=== PATIENT | female | born 1960 | race Caucasian/White ===

== ENCOUNTER 2017-06-10 17:34 | Inpatient (IN) | payer MEDICARE, OTHER ==
--- NOTE | 2017-06-10 17:54 | ED Physician Chart ---
ED Chief Complaint/HPI - Patient Information Date Seen:: 06/10/17 Time Seen:: 17:40 Chief Complaint:: Abdominal Pain History of Present Illness:: onset x 3 days of intermittent, diffuse, crampy abdominal pain, N/V/D; pt denies trauma, H/As, S/T, neck pain, C/P, SOB, A/C, fever, chills, or urinary s/ s Allergies:: Allergies Allergy/AdvReac Type Severity Reaction Status Date / Time prednisone AdvReac Verified 06/10/17 17:44 Historian:: Patient, EMS Review:: Nurse's Note Reviewed, Old Chart Reviewed, EMS run form Reviewed ED Review of Systems - Review of Systems General/Constitutional: No fever, No chills, No weight loss, No weakness, No diaphoresis, No edema, No loss of appetite Skin: No skin lesions, No rash, No bruising Head: No headache, No light-headedness Eyes: No loss of vision, No pain, No diplopia ENT: No earache, No nasal drainage, No sore throat, No tinnitus Neck: No neck pain, No swelling, No thyromegaly, No stiffness, No mass noted Cardio Vascular: No chest pain, No palpitations, No PND, No orthopnea, No edema Pulmonary: No SOB, No cough, No sputum, No wheezing GI: Nausea, Vomiting, Diarrhea, Pain, No melena, No hematochezia, No constipation, No hematemesis G/U: No dysuria, No frequency, No hematuria, No nacturia Hair Dryer: No vaginal discharge, No abnormal vaginal bleed, No contraction Musculoskeletal: No bone or joint pain, No back pain, No muscle pain Endocrine: No polyuria, No polydipsia Psychiatric: No prior psych history, No depression, No anxiety, No suicidal ideation, No homicidal ideation, No auditory hallucination, No visual hallucination Hematopoietic: No bruising, No lymphadenopathy Allergic/Immuno: No urticaria, No angioedema Neurological: No syncope, Focal symptoms, Weakness, Paresthesia, No headache, No seizure, No dizziness, No confusion, No vertigo ED Past Medical History - Past Medical History Obtainable: Yes Past Medical History: HTN, DM, CAD, CVA/TIA (Paraplegia; Anemia; MRSA), Dyslipidemia, PUD/GERD, ESRD, Other (Anemia; MRSA) Family History: Diabetes Melitus, HTN Social History: Non Smoker, No Alcohol, No Drug Use, Single, Care Facility Surgical History: None Psychiatricy History: None Medication: Reviewed Family Medical History - Family Member Mother Hx Family Cancer: No Hx Family Hypertension: No Hx Family Stroke: No Hx Family Diabetes: No Hx Family Dementia: No Hx Family HIV: No Hx Family COPD: No Hx Family Hepatitis: No Hx Family Psychiatric Problems: No ED Physical Exam - Physical Examination General/Constitutional: Awake, Well-developed, well-nourished, Alert, No distress, GCS 15, Non-toxic appearing, Ambulatory Head: Atraumatic Eyes: Lids, conjuctiva normal, PERRL, EOMI Skin: Nl inspection, No rash, No skin lesions, No ecchymosis, Well hydrated, No lymphadenopathy ENMT: External ears, nose nl, TM canals nl, Nasal exam nl, Lips, teeth, gums nl , Oropharynx nl, Tonsils nl Neck: Nontender, Full ROM w/o pain, No JVD, No nuchal rigidity, No bruit, No mass, No stridor Respiratory: Nl effort/Exclusion, Clear to Auscultation, No Wheeze/Rhonchi/Rales Cardio Vascular: RRR, No murmur, gallop, rubs, NL S1 S2, Carotid/Femoral/Distal pulses equal bilaterally GI: No tenderness/rebounding/guarding, No organomegaly, No hernia, Normal BS's, Nondistended, No mass/bruits, No McBurney tenderness : No CVA tenderness Extremities: No tenderness or effusion, Full ROM, normal strength in all extremities, No edema, Normal digits & nails Neuro/Psych: Alert/oriented, DTR's symmetric, Normal sensory exam, Normal motor strength, Judgement/insight normal, Mood normal, Normal gait Other Neuro/Psych comments:: + Paraplegia Misc: Normal back, No paraspinal tenderness ED Labs/Radiology/EKG Results - Lab Results Comments:: Na+: 130; U/A: + Pyuria - Radiology Results Comments:: NAD - EKG Interpretations EKG Time:: 18:30 Rate & Rhythm: 84; NSR Comments:: non-specific st-t changes ED Septic Shock - . Is Septic Shock (SBP<90, OR Lactate>4 mmol\L) present?: No ED Reassessment (Disposition) - Reassessment Reassessment Condition:: Improved - Diagnosis Diagnosis:: Hyponatremia; UTI; Anemia; Abdominal Pain; Intractable Pain - Aftercare/Follow up Instructions Aftercare/Follow-Up Instructions:: Counseled pt regarding lab results/diagnosis & need follow up, Counseled pt & family regarding lab results/diagnosis & need follow up - Patient Disposition Discharge/Transfer:: Acute Care w/in this hosp Accepting Physician:: Dr. Fernandez Time Called:: 1949 Time Responded:: 19:50 Admitted to:: Med/Surg Spoke to:: Dr. Fernandez Admitting Medical Physician:: Dr. Fernandez Condition at Disposition:: Stable, Improved
[2017-06-10] MEDS ORDERED: Sodium Chloride 0.9% 1,000 ML IV ONE (17:57)
[2017-06-10 18:42] LABS: % BASOPHILS 0.1 % (0.0-2.0); % EOSINOPHILS 0.9 % (0.0-5.0); % LYMPHOCYTES 27.8 % (20.0-50.0); % MONOCYTES 9.2 % (2.0-10.0); EOSINOPHILE ABSOLUTE 0.1 Th/cmm (0.1-0.4); HEMATOCRIT 31.8 % (41.0-60); HEMOGLOBIN 10.4 gm/dL (12-16); LYMPHOCYTE ABSOLUTE 2.4 Th/cmm (1.5-3.0); MEAN CELL VOLUME 70.6 fl (81-100); MEAN CORPUSCULAR HEMOGLOBIN 23.1 pg (27.0-31.0); MEAN CORPUSCULAR HGB CONC 32.7 pg (28.0-36.0); MEAN PLATELET VOLUME 7.5 fl; MONOCYTE ABSOLUTE 0.8 Th/cmm (0.3-1.0); NEUTROPHILE ABSOLUTE 5.3 Th/cmm (1.8-8.0); RED CELL DISTRIBUTION WIDTH 15.4 % (11.5-20.0); WHITE BLOOD COUNT 8.6 Th/cmm (4.8-10.8)
[2017-06-10] MEDS ORDERED: Tuberculin 5 TU/0.1 mL UD ID ONE (19:01)
[2017-06-10 19:33] LABS: PLATELET COUNT 384 Th/cmm (150-400)
[2017-06-10 19:33] LABS: INR 0.96 (0.5-1.4)
[2017-06-10 19:36] LABS: ALB/GLOB RATIO 0.7 (1.0-1.8); ALBUMIN 2.6 gm/dL (3.7-5.3); ALKALINE PHOSPHATASE 105 U/L (34-104); AMYLASE SERUM 21 U/L (29-103); ANION GAP 10.3 (7.0-16.0); BILIRUBIN,TOTAL 0.3 mg/dL (0.3-1.0); BUN - UREA NITROGEN 10 mg/dL (7-25); CALCIUM SERUM 8.3 mg/dL (8.6-10.3); CARBON DIOXIDE 22.6 mEq/L (21.0-31.0); CHLORIDE 101 mEq/L (98-107); CHOLESTEROL 97 mg/dL (<200); CREATININE - SERUM 0.5 mg/dL (0.6-1.2); CREATININE KINASE 108 U/L (30-223); GFR AFRICAN-AMERICAN > 60.0 ml/min (>90); GFR NON AFRICAN-AMERICAN > 60.0 ml/min; GLUCOSE 230 mg/dL (70-105); HDL -HIGH DENSITY LIPOPROTEIN 18 mg/dL (23-92); LIPASE 24 U/L (11-82); POTASSIUM SERUM 3.9 mEq/L (3.5-5.1); SGOT 12 U/L (13-39); SGPT/ALT 12 U/L (7-52); SODIUM SERUM 130 mEq/L (136-145); TOTAL PROTEIN,SERUM 6.5 gm/dL (6.0-8.3); TRIGLYCERIDES 165 mg/dL (<150)
[2017-06-10 19:40] LABS: URINE MICROSCOPIC INDICATED? YES; URINE SOURCE CLEAN C
[2017-06-10 19:44] LABS: URINE BILIRUBIN NEGATIVE (NEGATIVE); URINE BLOOD SMALL (NEGATIVE); URINE GLUCOSE (UA) NEGATIVE (NEGATIVE); URINE KETONE NEGATIVE (NEGATIVE); URINE LEUKOCYTE ESTERASE MODERATE (NEGATIVE); URINE NITRATE NEGATIVE (NEGATIVE); URINE PH 7.5 (4.6 - 8.0); URINE PROTEIN 30 mg/dL (NEGATIVE)
[2017-06-10 19:45] LABS: URINE COLOR YELLOW
[2017-06-10 19:46] LABS: URINE CLARITY HAZY (CLEAR)
[2017-06-10 19:50] LABS: URINE BACTERIA 2+ /hpf (NONE SEEN); URINE EPITHELIAL CELLS FEW /lpf (FEW)
[2017-06-10] MEDS ORDERED: Morphine Sulfate 2 mg/mL 1mL Syr IV STA (20:09)
[2017-06-10] MEDS ORDERED: Morphine Sulfate 2 mg/mL 1mL Syr ONE (20:35)
[2017-06-10] MEDS ORDERED: cefTRIAXone 1 GM in Sodium Chloride 0.9% 50 ML IV ONE (21:04)
[2017-06-10] MEDS ORDERED: IOHEXOL 300mgI/mL 100 ML VIAL ONE (21:22)
[2017-06-10] MEDS ORDERED: FENTANYL 100 MCG TD SCH (22:30)
[2017-06-10] MEDS ORDERED: Albuterol Nebulizer 2.5mg/3mL HHN PRN (22:32)
[2017-06-10] MEDS ORDERED: Maalox 30 mL Cup PO PRN (22:32)
[2017-06-10] MEDS ORDERED: Ipratropium Neb 0.5 mg/2.5 mL UD IH PRN (22:32)
[2017-06-10] MEDS ORDERED: Sodium Chloride 0.9% 1,000 ML IV SCH (22:45)
[2017-06-10] MEDS ORDERED: Sodium Chloride 0.45% 1,000 ML IV SCH (22:45)
[2017-06-10 22:51] LABS: A1C % 6.5 % (4.0-6.0)
[2017-06-10] MEDS ORDERED: GLUCAGON HCl 1 MG KIT IM PRN (23:00)
[2017-06-11] MEDS: Morphine Sulfate 2 mg/mL 1mL Syr IVP PRN (00:59)
[2017-06-11] MEDS: metroNIDAZOLE 500mg/NS 100mL 500 MG/100 ML BAG IV SCH ×4 (01:01→21:30)
[2017-06-11] MEDS: Levofloxacin 500mg/100mL 500 MG/100 ML BAG IV SCH (02:46)
[2017-06-11] MEDS: INSULIN ASPART, RECOMBINANT 100 UNITS/ML SUBQ SCH ×4 (06:47→21:30)
--- NOTE | 2017-06-11 07:55 | Diagnostic Imaging Report ---
CT scan abdomen and pelvis with intravenous contrast HISTORY: Pain Total DLP equals 314 CTDI equals 6.9 Axial sections were obtained from the xiphoid process down to the pubic symphysis following administration of intravenous contrast. The liver and spleen appear enlarged. No focal lesions. No focal parenchymal abnormality seen within the pancreas. However, there is a prominent common bile duct and pancreatic duct. Findings of questionable significance that should be correlated clinically and with the patient's surgical history. The gallbladder is not seen. Again, the finding should be correlated with the surgical history. No focal renal lesions. No hydronephrosis. The exam of the pelvis demonstrates preservation of normal fat planes. No abnormal soft tissue masses or abnormal fluid collections. A Dunn catheter is seen within the contracted urinary bladder. IMPRESSION: 1. Hepatosplenomegaly 2. Prominent common bile duct and pancreatic duct. The gallbladder is not seen. Findings may be associated with surgical sequelae. Clinical correlation and correlation with the surgical history is needed.
--- NOTE | 2017-06-11 08:02 | Diagnostic Imaging Report ---
CHEST X-RAY: AP view INDICATION: pain COMPARISON: None FINDINGS: Mild chronic lung changes are noted. There is no focal consolidation or pleural effusions The heart is normal in size. The osseous structures demonstrate no acute abnormalities. IMPRESSION: No focal airspace consolidation identified.
[2017-06-11] MEDS: Multivitamin w/ Minerals Tab PO SCH (08:17)
[2017-06-11] MEDS: Pantoprazole 40 mg EC Tab PO SCH ×2 (08:18→20:07)
[2017-06-11] MEDS: Enoxaparin 40 mg/0.4 mL 0.4mL Syr SUBQ SCH (08:18)
[2017-06-11] MEDS ORDERED: fentaNYL 50 mcg/hr Tdm Patch TD SCH (10:00)
[2017-06-11] MEDS ORDERED: Probiotic Screen MC PRN (12:00)
[2017-06-11] MEDS: Insulin Detemir 100 units/mL 10mL Vial SUBQ SCH (12:15)
--- NOTE | 2017-06-11 13:12 | Internal Medicine Prog Note ---
Internal Medicine Subjective - Subjective Service Date: 06/11/17 ([facility] [id number]) Internal Medicine Objective - Results Result Diagrams: 06/10/17 18:30 06/10/17 19:05 Recent Labs: Laboratory Last Values WBC 8.6 Th/cmm (4.8-10.8) 06/10/17 18:30 RBC 4.50 Mil/cmm (3.80-5.10) 06/10/17 18:30 Hgb 10.4 gm/dL (12-16) L 06/10/17 18:30 Hct 31.8 % (41.0-60) L 06/10/17 18:30 MCV 70.6 fl (81-100) L 06/10/17 18: MCH 23.1 pg (27.0-31.0) L 06/10/17 18: MCHC Differential 32.7 pg (28.0-36.0) 06/10/17 18: RDW 15.4 % (11.5-20.0) 06/10/17 18: Plt Count 384 Th/cmm (150-400) 06/10/17 18:30 MPV 7.5 fl 06/10/17 18:30 Neutrophils % 62.0 % (40.0-80.0) 06/10/17 18: Lymphocytes % 27.8 % (20.0-50.0) 06/10/17 18:30 Monocytes % 9.2 % (2.0-10.0) 06/10/17 18: Eosinophils % 0.9 % (0.0-5.0) 06/10/17 18: Basophils % 0.1 % (0.0-2.0) 06/10/17 18:30 PT 10.0 SECONDS (9.5-11.5) 06/10/17 19:05 INR 0.96 (0.5-1.4) 06/10/17 19:05 Sodium 130 mEq/L (136-145) L 06/10/17 19:05 Potassium 3.9 mEq/L (3.5-5.1) 06/10/17 19:05 Chloride 101 mEq/L (98-107) 06/10/17 19:05 Carbon Dioxide 22.6 mEq/L (21.0-31.0) 06/10/17 19:05 Anion Gap 10.3 (7.0-16.0) 06/10/17 19:05 BUN 10 mg/dL (7-25) 06/10/17 19:05 Creatinine 0.5 mg/dL (0.6-1.2) L 06/10/17 19:05 Est GFR ( Amer) > 60.0 ml/min (>90) 06/10/17 19:05 Est GFR (Non-Af Amer) > 60.0 ml/min 06/10/17 19:05 BUN/Creatinine Ratio 20.0 06/10/17 19:05 Glucose 230 mg/dL (70-105) H 06/10/17 19:05 POC Glucose 265 MG/DL (70 - 105) H 06/11/17 11:53 Hemoglobin A1c % 6.5 % (4.0-6.0) H 06/10/17 19:05 Calcium 8.3 mg/dL (8.6-10.3) L 06/10/17 19:05 Total Bilirubin 0.3 mg/dL (0.3-1.0) 06/10/17 19:05 AST 12 U/L (13-39) L 06/10/17 19:05 ALT 12 U/L (7-52) 06/10/17 19:05 Alkaline Phosphatase 105 U/L (34-104) H 06/10/17 19:05 Creatine Kinase 108 U/L (30-223) 06/10/17 19:05 Troponin I 0.01 ng/mL (0.01-0.05) 06/10/17 19:05 B-Natriuretic Peptide 47.9 pg/mL (5.0-100.0) 06/10/17 19:05 Total Protein 6.5 gm/dL (6.0-8.3) 06/10/17 19:05 Albumin 2.6 gm/dL (3.7-5.3) L 06/10/17 19:05 Globulin 3.9 gm/dL 06/10/17 19:05 Albumin/Globulin Ratio 0.7 (1.0-1.8) L 06/10/17 19:05 Triglycerides 165 mg/dL (<150) H 06/10/17 19:05 Cholesterol 97 mg/dL (<200) 06/10/17 19:05 LDL Cholesterol Direct 61 mg/dL (75-193) L 06/10/17 19:05 HDL Cholesterol 18 mg/dL (23-92) L 06/10/17 19:05 Amylase 21 U/L (29-103) L 06/10/17 19:05 Lipase 24 U/L (11-82) 06/10/17 19:05 Serum , Qual NEGATIVE (NEGATIVE) 06/10/17 19:05 Urine Source CLEAN C 06/10/17 17:58 Urine Color YELLOW 06/10/17 17:58 Urine Clarity HAZY (CLEAR) 06/10/17 17:58 Urine pH 7.5 (4.6 - 8.0) 06/10/17 17:58 Ur Specific [place] 1.015 (1.005-1.030) 06/10/17 17:58 Urine Protein 30 mg/dL (NEGATIVE) H 06/10/17 17:58 Urine Glucose (UA) NEGATIVE mg/dL (NEGATIVE) 06/10/17 17:58 Urine Ketones NEGATIVE mg/dL (NEGATIVE) 06/10/17 17:58 Urine Blood SMALL (NEGATIVE) H 06/10/17 17:58 Urine Nitrate NEGATIVE (NEGATIVE) 06/10/17 17:58 Urine Bilirubin NEGATIVE (NEGATIVE) 06/10/17 17:58 Urine Urobilinogen 1.0 E.U./dL (0.2 - 1.0) 06/10/17 17:58 Ur Leukocyte Esterase MODERATE (NEGATIVE) H 06/10/17 17:58 Urine RBC 5-10 /hpf (0-5) H 06/10/17 17:58 Urine WBC 10-25 /hpf (0-5) H 06/10/17 17:58 Ur Epithelial Cells FEW /lpf (FEW) 06/10/17 17:58 Urine Bacteria 2+ /hpf (NONE SEEN) H 06/10/17 17:58 Urine Test NEGATIVE 06/10/17 17:58 - Physical Exam Vitals and I&O: Vital Signs Temp 98.7 F 06/11/17 04:00 Pulse 78 06/11/17 08:52 Resp 18 06/11/17 08:52 BP 88/53 06/11/17 04:00 Pulse Ox 98 06/11/17 08:52 Intake & Output 06/10/17 06/11/17 06/11/17 18:59 06:59 18:59 Weight (lbs) 133 lb Active Medications: Current Medications Acetaminophen (Tylenol) 650 mg PO Q4HR PRN PRN Reason: Pain (Mild) Stop: 08/09/17 22:29 Acetaminophen (Tylenol) 650 mg PO Q4H PRN PRN Reason: Fever above 101 Stop: 08/09/17 22:31 Al Hydrox/Mg Hydrox/Simethicone (Maalox) 30 ml PO Q6H PRN PRN Reason: Dyspepsia Stop: 08/09/17 22:31 Albuterol Sulfate (Albuterol 2.5mg/3ml Neb Ud) 2.5 mg HHN Q2HRT PRN PRN Reason: Shortness of Breath or Wheeze Stop: 08/09/17 22:31 Baclofen (Lioresal) 10 mg PO QID [facility] Stop: 08/10/17 08:59 Last Admin: 06/11/17 08:17 Dose: 10 mg Duloxetine HCl (Cymbalta) 30 mg PO DAILY [facility] PRN Reason: Protocol Stop: 08/11/17 08:59 Enoxaparin Sodium (Lovenox) 40 mg SUBQ DAILY [facility] Stop: 08/10/17 08:59 Last Admin: 06/11/17 08:18 Dose: 40 mg Glucagon (Glucagen) 1 mg IM DAILY PRN PRN Reason: Anaphylaxis Stop: 08/09/17 22:59 Hydromorphone HCl (Dilaudid) 2 mg PO QID PRN PRN Reason: Pain (Moderate) Stop: 08/10/17 13:10 Levofloxacin (Levaquin Pb) 500 mg in 100 mls @ 100 mls/hr IV Q24HR [facility] Stop: 08/10/17 00:00 Last Admin: 06/11/17 02:46 Dose: 100 mls/hr Metronidazole (Flagyl) 500 mg in 100 mls @ 100 mls/hr IV Q8HR [facility] Stop: 08/09/17 22:59 Last Admin: 06/11/17 05:29 Dose: Not Given Sodium Chloride (Nacl 0.9%) 1,000 mls @ 80 mls/hr IV .[id number] [facility] Stop: 08/09/17 22:44 Insulin Aspart (Novolog) 0 units SUBQ ACHS [facility] PRN Reason: Protocol Stop: 08/10/17 07:29 Last Admin: 06/11/17 12:30 Dose: Not Given Insulin Detemir (Levemir Insulin) 34 units SUBQ HS [facility] PRN Reason: Protocol Stop: 08/10/17 20:59 Insulin Detemir (Levemir Insulin) 30 units SUBQ QAM [facility] PRN Reason: Protocol Stop: 08/10/17 08:59 Last Admin: 06/11/17 12:15 Dose: 30 units Ipratropium Dewitt (Atrovent Neb 0.5mg/2.5ml) 0.5 mg IH Q2HRT PRN PRN Reason: Shortness of Breath or Wheeze Stop: 08/09/17 22:31 Lactobacillus Rhamnosus (Culturelle 15b) 1 each PO DAILY [facility] Stop: 08/11/17 08:59 Miscellaneous (Probiotic Screen) 1 ea [facility] PRN PRN PRN Reason: PROTOCOL Stop: 08/10/17 11:59 Morphine Sulfate (Morphine) 2 mg IVP Q4H PRN PRN Reason: Severe Pain Stop: 08/09/17 22:34 Last Admin: 06/11/17 00:59 Dose: 2 mg Ondansetron HCl (Zofran) 4 mg IV Q8H PRN PRN Reason: Nausea / Vomiting Stop: 08/09/17 22:31 Pantoprazole Sodium (Protonix) 40 mg PO BID [facility] Stop: 08/10/17 08:59 Last Admin: 06/11/17 08:18 Dose: 40 mg Pregabalin (Lyrica) 50 mg PO TID [facility] Stop: 08/10/17 08:59 Last Admin: 06/11/17 08:17 Dose: 50 mg Quetiapine Fumarate (Seroquel) 12.5 mg PO HS [facility] PRN Reason: Protocol Stop: 08/10/17 20:59 Senna (Senna) 8.6 mg PO DAILY [facility] Stop: 08/10/17 08:59 Last Admin: 06/11/17 08:18 Dose: 8.6 mg Zolpidem Tartrate (Ambien) 10 mg PO HS PRN PRN Reason: Insomnia Stop: 08/09/17 22:50
--- NOTE | 2017-06-11 17:10 | History & Physical ---
ADMIT DATE: 06/11/2017 CHIEF COMPLAINT: Abdominal pain. HISTORY OF PRESENT ILLNESS: This is a 57-year-old female who is a custodial resident who is brought here to [facility] due to a 5-day history of abdominal pain. The patient states that the last time she had a BM was 4 days ago. She describes the pain as more crampy like intermittent sharp pains. Denies any nausea or vomiting. For further management, the patient is now admitted. PAST MEDICAL HISTORY: Hypertension, diabetes, CAD, CVA, paraplegia, anemia, MRSA, dyslipidemia, PD, GERD, ESRD and anemia. FAMILY HISTORY: Noncontributory. SOCIAL HISTORY: The patient is a custodial resident, requiring 24-hour nursing care. MEDICATIONS: Please see medication reconciliation. REVIEW OF SYSTEMS: GENERAL: Denies any fevers and chills. CARDIOVASCULAR: Denies chest pain. RESPIRATORY: Denies shortness of breath. GASTROINTESTINAL: Denies nausea, vomiting, but complains of abdominal pain and constipation. All other systems are reviewed and are negative. PHYSICAL EXAMINATION: GENERAL: The patient is well-developed, well-nourished, in no acute distress. VITAL SIGNS: Temperature 98.7, heart 78, blood pressure of 97/61 and O2 100%. HEENT: Head; normocephalic and atraumatic. NECK: Supple. No mass. LUNGS: Clear bilaterally. HEART: Regular rate and rhythm. ABDOMEN: Mildly distended. LABORATORY DATA: WBC 8.6, H and H 10.4 and 31.8 and platelets of 384. Sodium 130, potassium 3.9, chloride of 101, BUN 10, creatinine 0.5, hemoglobin A1c 6.5, AST 12 and ALT 12. Troponin of 0.01. Amylase 21 and lipase is 24. DIAGNOSTIC DATA: The patient had a CT of the abdomen and pelvis done and the impression is hepatosplenomegaly, prominent common bile duct and pancreatic duct. The gallbladder is not seen. Findings will be associated with surgical sequelae. The patient also had a chest x-ray done and the impression is no focal airspace consolidation identified. ASSESSMENT: 1. Abdominal pain. 2. Acute urinary tract infection. 3. Hyponatremia. 4. Constipation. PLAN: The patient to be admitted to the telemetry unit. We will keep the patient on IV antibiotics, Flagyl. We will give the patient some laxatives. Keep patient on full liquid diet. We will have GI on the case as well as Psychiatry and Wound Care. We will continue to follow this patient. JOB# [id number]
[2017-06-11] MEDS ORDERED: Insulin Detemir 100 units/mL 10mL Vial SUBQ SCH (21:00)
[2017-06-12] MEDS: Levofloxacin 500mg/100mL 500 MG/100 ML BAG IV SCH (01:55)
[2017-06-12] MEDS: metroNIDAZOLE 500mg/NS 100mL 500 MG/100 ML BAG IV SCH ×3 (06:38→21:39)
[2017-06-12 06:57] LABS: EOSINOPHILE ABSOLUTE 0.1 Th/cmm (0.1-0.4); HEMOGLOBIN 8.9 gm/dL (12-16); LYMPHOCYTE ABSOLUTE 2.5 Th/cmm (1.5-3.0); MEAN CELL VOLUME 70.1 fl (81-100); MEAN CORPUSCULAR HEMOGLOBIN 22.5 pg (27.0-31.0); MEAN PLATELET VOLUME 7.4 fl; NEUTROPHILE ABSOLUTE 2.2 Th/cmm (1.8-8.0); PLATELET COUNT 386 Th/cmm (150-400); RED BLOOD COUNT 3.95 Mil/cmm (3.80-5.10); RED CELL DISTRIBUTION WIDTH 15.2 % (11.5-20.0)
[2017-06-12 07:03] LABS: HEMATOCRIT 27.7 % (41.0-60); WHITE BLOOD COUNT 5.8 Th/cmm (4.8-10.8)
[2017-06-12 07:09] LABS: INR 1.05 (0.5-1.4); PROTHROMBIN TIME (TEST) 10.9 SECONDS (9.5-11.5)
[2017-06-12] MEDS: INSULIN ASPART, RECOMBINANT 100 UNITS/ML SUBQ SCH ×4 (07:10→21:30)
[2017-06-12 07:22] LABS: ALB/GLOB RATIO 0.7 (1.0-1.8); ALBUMIN 2.5 gm/dL (3.7-5.3); ALKALINE PHOSPHATASE 89 U/L (34-104); ANION GAP 8.9 (7.0-16.0); BILIRUBIN,TOTAL 0.3 mg/dL (0.3-1.0); BUN - UREA NITROGEN 5 mg/dL (7-25); CALCIUM SERUM 8.5 mg/dL (8.6-10.3); CARBON DIOXIDE 21.8 mEq/L (21.0-31.0); CHLORIDE 108 mEq/L (98-107); CREATININE - SERUM 0.7 mg/dL (0.6-1.2); GFR AFRICAN-AMERICAN > 60.0 ml/min (>90); GFR NON AFRICAN-AMERICAN > 60.0 ml/min; GLUCOSE 53 mg/dL (70-105); LIPASE 11 U/L (11-82); MAGNESIUM 2.1 mg/dL (1.9-2.7); POTASSIUM SERUM 3.7 mEq/L (3.5-5.1); SGOT 11 U/L (13-39); SGPT/ALT 9 U/L (7-52); SODIUM SERUM 135 mEq/L (136-145); TOTAL PROTEIN,SERUM 6.2 gm/dL (6.0-8.3)
[2017-06-12] MEDS: Enoxaparin 40 mg/0.4 mL 0.4mL Syr SUBQ SCH (10:12)
[2017-06-12] MEDS: Insulin Detemir 100 units/mL 10mL Vial SUBQ SCH ×2 (10:13→21:38)
[2017-06-12] MEDS: Multivitamin w/ Minerals Tab PO SCH (10:14)
[2017-06-12] MEDS: Pantoprazole 40 mg EC Tab PO SCH ×2 (10:14→17:19)
[2017-06-12] MEDS: Lactobacillus Rhamnosus GG 15 Billion CFU CAP.SPRINK PO SCH (10:14)
[2017-06-12] MEDS ORDERED: Propofol 10 mg/mL 20mL Vial **SURGERY USE ONLY IV ONE (11:01)
[2017-06-12] MEDS ORDERED: Magnesium Citrate 1.75 GM/300 mL Bottle PO ONE (11:30)
--- NOTE | 2017-06-12 12:54 | Consultation ---
DATE OF CONSULTATION: 06/11/2017 CHIEF COMPLAINT: "I am not doing well." HISTORY OF PRESENT ILLNESS: The patient is a 57-year-old female with a history of multiple medical problems, being sad and anxious, depressed, feeling easily overwhelmed. The patient has multiple medical issues, transferred from her [facility] facility for some changes in mental status exam. Now she is on medical floor. The patient does complain about pain issues. PAST PSYCHIATRIC HISTORY: Anxiety and depression, but no prior suicide attempts. PAST MEDICAL HISTORY: As per Dr. Fernandez. PSYCHOSOCIAL HISTORY: The patient resides in a nursing facility, requires complete care. MENTAL STATUS EXAMINATION: Speech fluent, not pressured, but slightly fast. Affect somewhat labile, depressed, anxious. The patient slightly guarded, possibly paranoid, but no delusional thought. She is oriented x 3. ASSESSMENT: Major depressive disorder, recurrent, possibly psychosis. PLAN: We will add Cymbalta 30 mg p.o. every day, small dose of Seroquel at nighttime. We will follow the patient closely in the hospital. Thank you for the consultation. JOB# [id number]
[2017-06-12 13:51] LABS: ABSOLUTE RETICULOCYTE 31.6 Th/cmm; RBC RETICULOCYTE COUNT 3.95 Mil/cmm; RETICULOCYTES % COUNTED 0.8 % (0.5-1.5)
[2017-06-12 13:52] LABS: CORRECTED RETICULOCYTE COUNT 0.5 % (0.5-1.5); HEMATOCRIT 27.7 % (33.0-45.0)
--- NOTE | 2017-06-12 14:45 | Internal Medicine Prog Note ---
Internal Medicine Subjective - Subjective Service Date: 06/12/17 Patient seen and examined:: with staff Patient is:: awake Per staff patient has:: tolerating meds Internal Medicine Objective - Results Result Diagrams: 06/12/17 06:10 06/12/17 06:10 Recent Labs: Laboratory Last Values WBC 5.8 Th/cmm (4.8-10.8) D 06/12/17 06:10 RBC 3.95 Mil/cmm (3.80-5.10) 06/12/17 06:10 Hgb 8.9 gm/dL (12-16) L 06/12/17 06:10 Hct 27.7 % (33.0-45.0) L 06/12/17 06:10 MCV 70.1 fl (81-100) L 06/12/17 06:10 MCH 22.5 pg (27.0-31.0) L 06/12/17 06:10 MCHC Differential 32.0 pg (28.0-36.0) 06/12/17 06:10 RDW 15.2 % (11.5-20.0) 06/12/17 06:10 Plt Count 386 Th/cmm (150-400) 06/12/17 06:10 MPV 7.4 fl 06/12/17 06:10 Neutrophils % 62.0 % (40.0-80.0) 06/10/17 18:30 Lymphocytes % 27.8 % (20.0-50.0) 06/10/17 18:30 Monocytes % 9.2 % (2.0-10.0) 06/10/17 18:30 Eosinophils % 0.9 % (0.0-5.0) 06/10/17 18:30 Basophils % 0.1 % (0.0-2.0) 06/10/17 18:30 Total Retics Counted 0.8 % (0.5-1.5) 06/12/17 06:10 Absolute Retic 31.6 Th/cmm 06/12/17 06:10 Corrected Retic Count 0.5 % (0.5-1.5) 06/12/17 06:10 PT 10.9 SECONDS (9.5-11.5) 06/12/17 06:10 INR 1.05 (0.5-1.4) 06/12/17 06:10 Sodium 135 mEq/L (136-145) L 06/12/17 06:10 Potassium 3.7 mEq/L (3.5-5.1) 06/12/17 06:10 Chloride 108 mEq/L (98-107) H 06/12/17 06:10 Carbon Dioxide 21.8 mEq/L (21.0-31.0) 06/12/17 06:10 Anion Gap 8.9 (7.0-16.0) 06/12/17 06:10 BUN 5 mg/dL (7-25) L 06/12/17 06:10 Creatinine 0.7 mg/dL (0.6-1.2) 06/12/17 06:10 Est GFR ( Amer) > 60.0 ml/min (>90) 06/12/17 06:10 Est GFR (Non-Af Amer) > 60.0 ml/min 06/12/17 06:10 BUN/Creatinine Ratio 7.1 06/12/17 06:10 Glucose 53 mg/dL (70-105) L 06/12/17 06:10 POC Glucose 198 MG/DL (70 - 105) H 06/12/17 11:52 Hemoglobin A1c % 6.5 % (4.0-6.0) H 06/10/17 19:05 Calcium 8.5 mg/dL (8.6-10.3) L 06/12/17 06:10 Magnesium 2.1 mg/dL (1.9-2.7) 06/12/17 06:10 Total Bilirubin 0.3 mg/dL (0.3-1.0) 06/12/17 06:10 AST 11 U/L (13-39) L 06/12/17 06:10 ALT 9 U/L (7-52) 06/12/17 06:10 Alkaline Phosphatase 89 U/L (34-104) 06/12/17 06:10 Creatine Kinase 108 U/L (30-223) 06/10/17 19:05 Troponin I 0.01 ng/mL (0.01-0.05) 06/10/17 19:05 B-Natriuretic Peptide 47.9 pg/mL (5.0-100.0) 06/10/17 19:05 Total Protein 6.2 gm/dL (6.0-8.3) 06/12/17 06:10 Albumin 2.5 gm/dL (3.7-5.3) L 06/12/17 06:10 Globulin 3.7 gm/dL 06/12/17 06:10 Albumin/Globulin Ratio 0.7 (1.0-1.8) L 06/12/17 06:10 Triglycerides 165 mg/dL (<150) H 06/10/17 19:05 Cholesterol 97 mg/dL (<200) 06/10/17 19:05 LDL Cholesterol Direct 61 mg/dL (75-193) L 06/10/17 19:05 HDL Cholesterol 18 mg/dL (23-92) L 06/10/17 19:05 Amylase 21 U/L (29-103) L 06/10/17 19:05 Lipase 11 U/L (11-82) 06/12/17 06:10 TSH 2.25 uIU/ml (0.34-5.60) 06/12/17 06:10 Serum , Qual NEGATIVE (NEGATIVE) 06/10/17 19:05 Urine Source CLEAN C 06/10/17 17:58 Urine Color YELLOW 06/10/17 17:58 Urine Clarity HAZY (CLEAR) 06/10/17 17:58 Urine pH 7.5 (4.6 - 8.0) 06/10/17 17:58 Ur Specific [place] 1.015 (1.005-1.030) 06/10/17 17:58 Urine Protein 30 mg/dL (NEGATIVE) H 06/10/17 17:58 Urine Glucose (UA) NEGATIVE mg/dL (NEGATIVE) 06/10/17 17:58 Urine Ketones NEGATIVE mg/dL (NEGATIVE) 06/10/17 17:58 Urine Blood SMALL (NEGATIVE) H 06/10/17 17:58 Urine Nitrate NEGATIVE (NEGATIVE) 06/10/17 17:58 Urine Bilirubin NEGATIVE (NEGATIVE) 06/10/17 17:58 Urine Urobilinogen 1.0 E.U./dL (0.2 - 1.0) 06/10/17 17:58 Ur Leukocyte Esterase MODERATE (NEGATIVE) H 06/10/17 17:58 Urine RBC 5-10 /hpf (0-5) H 06/10/17 17:58 Urine WBC 10-25 /hpf (0-5) H 06/10/17 17:58 Ur Epithelial Cells FEW /lpf (FEW) 06/10/17 17:58 Urine Bacteria 2+ /hpf (NONE SEEN) H 06/10/17 17:58 Urine Test NEGATIVE 06/10/17 17:58 - Physical Exam Vitals and I&O: Vital Signs Temp 98.5 F 06/12/17 12:00 Pulse 80 06/12/17 12:00 Resp 16 06/12/17 12:00 BP 101/51 06/12/17 12:00 Pulse Ox 98 06/12/17 12:00 Intake & Output 06/11/17 06/12/17 06/12/17 18:59 06:59 18:59 Intake Total 450 100 Output Total 1000 Balance -550 100 Weight (lbs) 133 lb 128 lb 1.6 oz Intake: Intake, IV Amount 200 100 Levofloxacin 500mg/100mL 100 500 mg In 100 ml @ 100 mls/hr IV Q24HR [facility] Rx#: [id number] metroNIDAZOLE 500mg/NS 100 100 100mL 500 mg In 100 ml @ 100 mls/hr IV Q8HR [facility] Rx #:[id number] Oral 250 Output: Urine 1000 Other: # Bowel Movements 0 Active Medications: Current Medications Acetaminophen (Tylenol) 650 mg PO Q4HR PRN PRN Reason: Pain (Mild) Stop: 08/09/17 22:29 Acetaminophen (Tylenol) 650 mg PO Q4H PRN PRN Reason: Fever above 101 Stop: 08/09/17 22:31 Al Hydrox/Mg Hydrox/Simethicone (Maalox) 30 ml PO Q6H PRN PRN Reason: Dyspepsia Stop: 08/09/17 22:31 Albuterol Sulfate (Albuterol 2.5mg/3ml Neb Ud) 2.5 mg HHN Q2HRT PRN PRN Reason: Shortness of Breath or Wheeze Stop: 08/09/17 22:31 Baclofen (Lioresal) 10 mg PO QID [facility] Stop: 08/10/17 08:59 Last Admin: 06/12/17 12:57 Dose: 10 mg Duloxetine HCl (Cymbalta) 30 mg PO DAILY [facility] PRN Reason: Protocol Stop: 08/11/17 08:59 Last Admin: 06/12/17 10:07 Dose: Not Given Enoxaparin Sodium (Lovenox) 30 mg SUBQ DAILY [facility] Stop: 08/10/17 08:59 Glucagon (Glucagen) 1 mg IM DAILY PRN PRN Reason: Anaphylaxis Stop: 08/09/17 22:59 Hydromorphone HCl (Dilaudid) 2 mg PO QID PRN PRN Reason: Pain (Moderate) Stop: 08/10/17 13:10 Levofloxacin (Levaquin Pb) 500 mg in 100 mls @ 100 mls/hr IV Q24HR [facility] Stop: 08/10/17 00:00 Last Infusion: 06/12/17 02:55 Dose: Infused Metronidazole (Flagyl) 500 mg in 100 mls @ 100 mls/hr IV Q8HR [facility] Stop: 08/09/17 22:59 Last Admin: 06/12/17 13:00 Dose: 100 mls/hr Sodium Chloride (Nacl 0.9%) 1,000 mls @ 60 mls/hr IV .[id number] [facility] Stop: 08/09/17 22:44 Insulin Aspart (Novolog) 0 units SUBQ ACHS [facility] PRN Reason: Protocol Stop: 08/10/17 07:29 Last Admin: 06/12/17 11:56 Dose: Not Given Insulin Detemir (Levemir Insulin) 30 units SUBQ HS [facility] PRN Reason: Protocol Stop: 08/10/17 20:59 Insulin Detemir (Levemir Insulin) 26 units SUBQ QAM [facility] PRN Reason: Protocol Stop: 08/10/17 08:59 Ipratropium [place] (Atrovent Neb 0.5mg/2.5ml) 0.5 mg IH Q2HRT PRN PRN Reason: Shortness of Breath or Wheeze Stop: 08/09/17 22:31 Lactobacillus Rhamnosus (Culturelle 15b) 1 each PO DAILY [facility] Stop: 08/11/17 08:59 Last Admin: 06/12/17 10:14 Dose: Not Given Miscellaneous (Probiotic Screen) 1 ea [facility] PRN PRN PRN Reason: PROTOCOL Stop: 08/10/17 11:59 Morphine Sulfate (Morphine) 2 mg IVP Q4H PRN PRN Reason: Severe Pain Stop: 08/09/17 22:34 Last Admin: 06/11/17 00:59 Dose: 2 mg Ondansetron HCl (Zofran) 4 mg IV Q8H PRN PRN Reason: Nausea / Vomiting Stop: 08/09/17 22:31 Pantoprazole Sodium (Protonix) 40 mg PO BID [facility] Stop: 08/10/17 08:59 Last Admin: 06/12/17 10:14 Dose: Not Given Pregabalin (Lyrica) 50 mg PO TID [facility] Stop: 08/10/17 08:59 Last Admin: 06/12/17 13:24 Dose: 50 mg Quetiapine Fumarate (Seroquel) 12.5 mg PO HS [facility] PRN Reason: Protocol Stop: 08/10/17 20:59 Last Admin: 06/11/17 21:31 Dose: 12.5 mg Senna (Senna) 8.6 mg PO DAILY [facility] Stop: 08/10/17 08:59 Last Admin: 06/12/17 10:15 Dose: Not Given Zolpidem Tartrate (Ambien) 10 mg PO HS PRN PRN Reason: Insomnia Stop: 08/09/17 22:50 Last Admin: 06/11/17 21:30 Dose: 10 mg General: alert HEENT: NC/AT, PERRLA Neck: Supple Lungs: CTAB Cardiovascular: RRR, Normal S1, Normal S2 Abdomen: soft, non-tender, non-distended Neurological: alert Internal Medicine Assmt/Plan - Assessment Assessment: abdominal pain acute uti hyponatremia constipation - Plan Plan: cbc/bmp in am continue ivabx psych f/u continue current plan of care Nutritional Asmnt/Malnutr-PDOC - Dietary Evaluation Malnutrition Findings (Please click <Entered> for more info): Nutritional Asmnt/Malnutrition Start: 06/11/17 17: 35 Text: Status: Complete Freq: Document 06/11/17 17:36 LCHENG (Rec: 06/11/17 17:59 LCHENG [id number]) Nutritional Asmnt/Malnutrition Patient General Information Nutritional Screening High Risk Diagnosis abdominal pain, UTI Pertinent Medical Hx/Surgical Hx HTN, DM, CD, CVA/TIA, paraplegia, anemia, MRSA, dyslipidemia, PUD/GERD, ESRD Subjective Information Consult received for wounds. Pt seen lying in bed at time of visit. Pt reported appetite ok, she only took milk and pudding for lunch, she did not like the soup and cranberry juice. Pt understand the importance of limiting carb intake. But she has not been following any diet restrictions. pt denied N/V. Current Diet Order/ Nutrition Support full liquid Pertinent Medications glucagen, novolog, levemir, culturelle, levaquin, protonix , seroquel, nacl 0.9% Pertinent Labs 06/10 na 130, K 3.9, Cl 101, BUN 10, Cr 0.5, Glucose 230, A1c 6.5, ca 8.3, Alb 2.6 Nutritional Hx/Data Height 5 ft 1 in Height (Calculated Centimeters) 154.9 Current Weight (lbs) 133 lb Weight (Calculated Kilograms) 60.3 Weight (Calculated Grams) 48897.8 [place] Body Weight 105 % [place] Body Weight 126 Body Mass Index (BMI) 25.1 Weight Status Overweight GI Symptoms GI Symptoms None Difficult in: None Skin Integrity/Comment: preesure ulcer to right buttocks, ulceration to left buttocks Estimated Nutritional Goals BEE in Kcals: Using Current wt Calories/Kcals/Kg 25-30 Kcals Calculated 7810-3631 Protein: Using Current wt Protein g/k.2-1.4 Protein Calculated 72-84 Fluid: ml 1500-1800ml (1ml/kcal) Nutritional Problem 1. Problem Problem increased nutrition needs ( calorie and protein) Etiology wound healing Signs/Symptoms: pressure ulcer Malnutrition Alert Protein-Calorie Malnutrition N/A Is there a minimum of two criteria No selected? Query Text:Check all the applicable criteria. A minimum of two criteria are recommended for diagnosis of either severe or non-severe malnutrition. Intervention/Recommendation Comments 1. Receommend Boost Glucose Control TID for full liquid diet to supplement nutrition intake. 2. MD to consider zinc and vitamin c to help with wound healing 3. Monitor PO intake, wt, labs and skin integrity 4. F/U as high risk in 2-3 days, 2/3-2/4 Expected Outcomes/Goals Expected Outcomes/Goals 1. PO intake to meet at least 75% of nutritional needs. 2. Wt stability, wound to heal , labs to approach WNL.
[2017-06-12] MEDS: Morphine Sulfate 2 mg/mL 1mL Syr IVP PRN ×2 (17:19→21:14)
[2017-06-13] MEDS: Levofloxacin 500mg/100mL 500 MG/100 ML BAG IV SCH (00:40)
--- NOTE | 2017-06-13 04:46 | Consultation ---
DATE OF CONSULTATION: 06/11/2017 REASON FOR CONSULTATION: Abdominal pain. HISTORY OF PRESENT ILLNESS: This consult was obtained through the courtesy of Dr. Fernandez and Nohemy Lindo for this 57-year-old [facility] with history of hypertension, diabetes, CVA, paraplegia, coronary artery disease, anemia, MRSA, hyperlipidemia, and end-stage renal disease who presented to the hospital with abdominal pain. According to the patient, she had surgery in [place] a month ago for her back, which was complicated by paraplegia. The patient denies any hematemesis, melena or hematochezia. She had abdominal pain, has been going on for a while. Pain is in epigastric area, but sometimes diffuse. PAST MEDICAL HISTORY: Hypertension, diabetes, coronary artery disease, paraplegia, anemia, and hyperlipidemia. PAST SURGICAL HISTORY: Back surgery. SOCIAL HISTORY: Nonsmoker, nonalcoholic, non IV drug abuser. FAMILY HISTORY: Noncontributory. ALLERGIES: Prednisone. MEDICATIONS: The patient is on Tylenol, Maalox, albuterol, baclofen, Cymbalta, Lovenox, glucagon, Dilaudid, NovoLog, Levemir, Atrovent, lactobacillus, Levaquin, Flagyl, morphine, Zofran, Protonix, Lyrica, Seroquel, senna, and Ambien. REVIEW OF SYSTEMS: As per history of present illness. She denies any GI bleed. Denies vomiting or hematemesis. She has abdominal pain. She has nausea. PHYSICAL EXAMINATION: GENERAL: The patient is awake, oriented to self and place, in no acute distress. VITAL SIGNS: Blood pressure was 88/53, heart rate was 70, respiratory rate was 18 and temperature was 98.7. HEAD AND NECK: Pupils reactive to light and accommodation. Extraocular muscles could not be tested. Oral cavity, no lesion. NECK: Supple, no jugular venous distention, no carotid bruit or lymph node. CHEST: Good respiratory movements. LUNGS: Showed few rhonchi. CARDIOVASCULAR: Regular rate and rhythm. No murmur or gallop. ABDOMEN: Soft, positive bowel sound, positive epigastric tenderness. EXTREMITIES: Lower extremities, no edema. CENTRAL NERVOUS SYSTEM: Grossly nonfocal. LABORATORY DATA: White count 8.6, H and H are 10.4 and 31.8 with platelets of 384. PT is normal. Chemistry showed albumin of 2.5. AST and ALT were normal. Alkaline phosphatase was normal. CT of the abdomen and pelvis showed hepatosplenomegaly, dilated pancreatic and common bile duct, nonvisualization of the gallbladder. IMPRESSION: A 57-year-old with abdominal pain. ASSESSMENT AND PLAN: Abdominal pain, could be peptic ulcer disease versus IBS versus common bile duct stones. RECOMMENDATIONS: 1. PPI. 2. EGD. 3. Recheck labs in the morning including liver function tests and lipase. 4. If the EGD is negative and there is elevation of liver enzymes, consider MRCP. 5. Symptomatic treatment. 6. Further recommendations to follow. Other medical problems such as diabetes, coronary artery disease, hyperlipidemia, etc., as per Dr. Fernandez. Thank you Dr. Fernandez for allowing me to participate in the care of the patient. If you have any further questions, please let me know. JOB# [id number]
[2017-06-13] MEDS: metroNIDAZOLE 500mg/NS 100mL 500 MG/100 ML BAG IV SCH ×3 (04:54→20:45)
[2017-06-13] MEDS: INSULIN ASPART, RECOMBINANT 100 UNITS/ML SUBQ SCH ×4 (06:51→20:46)
--- NOTE | 2017-06-13 07:38 | Operative Report ---
DATE OF SURGERY: 06/12/2017 PROCEDURE: Esophagogastroduodenoscopy with biopsy. INDICATION FOR PROCEDURE: Abdominal pain and anemia. CONSENT: Informed consent was obtained from the patient after outlining benefits and risks including infection, bleeding, perforation, . ANESTHESIA USED: Propofol. PREOPERATIVE DIAGNOSIS: Abdominal pain. POSTOPERATIVE DIAGNOSIS: Gastritis. DESCRIPTION OF PROCEDURE: The patient was placed on her back. Head was tilted to the side and flexed forward. Upper Olympus endoscope was introduced into the mouth and advanced to the esophagus, which was intubated under direct visualization. Esophageal mucosa was examined on the way down to essentially normal. GE junction was identified at 37 cm. Scope was advanced to the stomach where the gastric mucosa was examined and it showed mild gastritis. There were areas of erythema involving the body and antrum. Scope was advanced through the pylorus to the duodenum where the bulb and second part were examined and they were both normal. Scope was withdrawn to the stomach and retroflexed to examine the cardia and fundus. It did not show any other abnormality. Scope was then straightened. Same examination was repeated again without new findings, so biopsies were taken from the antrum and body for histopathology, then from the antrum for CLOtest. Scope was then withdrawn while examining the gastric and esophageal mucosa second time. The patient tolerated the procedure well. There were no immediate postoperative complications. RECOMMENDATIONS: 1. Follow up biopsy results and CLOtest. 2. Treat H. pylori if positive. 3. Continue to monitor labs. 4. Workup for anemia. 5. Further recommendations to follow. Thank you, Dr. Fernandez, for allowing me to participate in the care of the patient. If you have any further questions, please let me know. JOB# [id number]
[2017-06-13] MEDS: Morphine Sulfate 2 mg/mL 1mL Syr IVP PRN ×4 (08:32→21:30)
[2017-06-13] MEDS: Pantoprazole 40 mg EC Tab PO SCH ×2 (08:34→17:22)
[2017-06-13] MEDS: Lactobacillus Rhamnosus GG 15 Billion CFU CAP.SPRINK PO SCH (08:34)
[2017-06-13] MEDS: Enoxaparin 30 mg/0.3 mL 0.3mL Syr SUBQ SCH ×2 (08:35→08:43)
[2017-06-13] MEDS: Multivitamin w/ Minerals Tab PO SCH (08:35)
[2017-06-13] MEDS: Insulin Detemir 100 units/mL 10mL Vial SUBQ SCH ×2 (08:35→20:46)
--- NOTE | 2017-06-13 09:09 | GI Progress Note ---
Subjective - Review of Systems Subjective: SOME ABD PAIN Objective - Results Result Diagrams: 06/12/17 06:10 06/12/17 06:10 Recent Labs: Laboratory Last Values WBC 5.8 Th/cmm (4.8-10.8) D 06/12/17 06:10 RBC 3.95 Mil/cmm (3.80-5.10) 06/12/17 06:10 Hgb 8.9 gm/dL (12-16) L 06/12/17 06:10 Hct 27.7 % (33.0-45.0) L 06/12/17 06:10 MCV 70.1 fl (81-100) L 06/12/17 06:10 MCH 22.5 pg (27.0-31.0) L 06/12/17 06:10 MCHC Differential 32.0 pg (28.0-36.0) 06/12/17 06:10 RDW 15.2 % (11.5-20.0) 06/12/17 06:10 Plt Count 386 Th/cmm (150-400) 06/12/17 06:10 MPV 7.4 fl 06/12/17 06:10 Neutrophils % 62.0 % (40.0-80.0) 06/10/17 18:30 Lymphocytes % 27.8 % (20.0-50.0) 06/10/17 18:30 Monocytes % 9.2 % (2.0-10.0) 06/10/17 18:30 Eosinophils % 0.9 % (0.0-5.0) 06/10/17 18:30 Basophils % 0.1 % (0.0-2.0) 06/10/17 18:30 Total Retics Counted 0.8 % (0.5-1.5) 06/12/17 06:10 Absolute Retic 31.6 Th/cmm 06/12/17 06:10 Corrected Retic Count 0.5 % (0.5-1.5) 06/12/17 06:10 PT 10.9 SECONDS (9.5-11.5) 06/12/17 06:10 INR 1.05 (0.5-1.4) 06/12/17 06:10 Sodium 135 mEq/L (136-145) L 06/12/17 06:10 Potassium 3.7 mEq/L (3.5-5.1) 06/12/17 06:10 Chloride 108 mEq/L (98-107) H 06/12/17 06:10 Carbon Dioxide 21.8 mEq/L (21.0-31.0) 06/12/17 06:10 Anion Gap 8.9 (7.0-16.0) 06/12/17 06:10 BUN 5 mg/dL (7-25) L 06/12/17 06:10 Creatinine 0.7 mg/dL (0.6-1.2) 06/12/17 06:10 Est GFR ( Amer) > 60.0 ml/min (>90) 06/12/17 06:10 Est GFR (Non-Af Amer) > 60.0 ml/min 06/12/17 06:10 BUN/Creatinine Ratio 7.1 06/12/17 06:10 Glucose 53 mg/dL (70-105) L 06/12/17 06:10 POC Glucose 145 MG/DL (70 - 105) H 06/13/17 06:48 Hemoglobin A1c % 6.5 % (4.0-6.0) H 06/10/17 19:05 Calcium 8.5 mg/dL (8.6-10.3) L 06/12/17 06:10 Magnesium 2.1 mg/dL (1.9-2.7) 06/12/17 06:10 Total Bilirubin 0.3 mg/dL (0.3-1.0) 06/12/17 06:10 AST 11 U/L (13-39) L 06/12/17 06:10 ALT 9 U/L (7-52) 06/12/17 06:10 Alkaline Phosphatase 89 U/L (34-104) 06/12/17 06:10 Creatine Kinase 108 U/L (30-223) 06/10/17 19:05 Troponin I 0.01 ng/mL (0.01-0.05) 06/10/17 19:05 B-Natriuretic Peptide 47.9 pg/mL (5.0-100.0) 06/10/17 19:05 Total Protein 6.2 gm/dL (6.0-8.3) 06/12/17 06:10 Albumin 2.5 gm/dL (3.7-5.3) L 06/12/17 06:10 Globulin 3.7 gm/dL 06/12/17 06:10 Albumin/Globulin Ratio 0.7 (1.0-1.8) L 06/12/17 06:10 Triglycerides 165 mg/dL (<150) H 06/10/17 19:05 Cholesterol 97 mg/dL (<200) 06/10/17 19:05 LDL Cholesterol Direct 61 mg/dL (75-193) L 06/10/17 19:05 HDL Cholesterol 18 mg/dL (23-92) L 06/10/17 19:05 Amylase 21 U/L (29-103) L 06/10/17 19:05 Lipase 11 U/L (11-82) 06/12/17 06:10 TSH 2.25 uIU/ml (0.34-5.60) 06/12/17 06:10 Serum , Qual NEGATIVE (NEGATIVE) 06/10/17 19:05 Urine Source CLEAN C 06/10/17 17:58 Urine Color YELLOW 06/10/17 17:58 Urine Clarity HAZY (CLEAR) 06/10/17 17:58 Urine pH 7.5 (4.6 - 8.0) 06/10/17 17:58 Ur Specific [place] 1.015 (1.005-1.030) 06/10/17 17:58 Urine Protein 30 mg/dL (NEGATIVE) H 06/10/17 17:58 Urine Glucose (UA) NEGATIVE mg/dL (NEGATIVE) 06/10/17 17:58 Urine Ketones NEGATIVE mg/dL (NEGATIVE) 06/10/17 17:58 Urine Blood SMALL (NEGATIVE) H 06/10/17 17:58 Urine Nitrate NEGATIVE (NEGATIVE) 06/10/17 17:58 Urine Bilirubin NEGATIVE (NEGATIVE) 06/10/17 17:58 Urine Urobilinogen 1.0 E.U./dL (0.2 - 1.0) 06/10/17 17:58 Ur Leukocyte Esterase MODERATE (NEGATIVE) H 06/10/17 17:58 Urine RBC 5-10 /hpf (0-5) H 06/10/17 17:58 Urine WBC 10-25 /hpf (0-5) H 06/10/17 17:58 Ur Epithelial Cells FEW /lpf (FEW) 06/10/17 17:58 Urine Bacteria 2+ /hpf (NONE SEEN) H 06/10/17 17:58 Urine Test NEGATIVE 06/10/17 17:58 - Physical Exam Vitals and I&O: Vital Signs Temp 97.8 F 06/13/17 08:00 Pulse 73 06/13/17 08:00 Resp 18 06/13/17 08:00 BP 101/52 06/13/17 08:00 Pulse Ox 100 06/13/17 08:00 Intake & Output 06/12/17 06/13/17 06/13/17 18:59 06:59 18:59 Intake Total 200 600 200 Output Total 3300 Balance 200 -2700 200 Weight (lbs) 58.06 kg Intake: Intake, IV Amount 200 100 200 Levofloxacin 500mg/100mL 100 500 mg In 100 ml @ 100 mls/hr IV Q24HR [facility] Rx#: [id number] metroNIDAZOLE 500mg/NS 200 100 100 100mL 500 mg In 100 ml @ 100 mls/hr IV Q8HR [facility] Rx #:[id number] Oral 500 Output: Urine 3300 Other: # Bowel Movements 0 Active Medications: Current Medications Acetaminophen (Tylenol) 650 mg PO Q4HR PRN PRN Reason: Pain (Mild) Stop: 08/09/17 22:29 Acetaminophen (Tylenol) 650 mg PO Q4H PRN PRN Reason: Fever above 101 Stop: 08/09/17 22:31 Al Hydrox/Mg Hydrox/Simethicone (Maalox) 30 ml PO Q6H PRN PRN Reason: Dyspepsia Stop: 08/09/17 22:31 Albuterol Sulfate (Albuterol 2.5mg/3ml Neb Ud) 2.5 mg HHN Q2HRT PRN PRN Reason: Shortness of Breath or Wheeze Stop: 08/09/17 22:31 Baclofen (Lioresal) 10 mg PO QID [facility] Stop: 08/10/17 08:59 Last Admin: 06/13/17 08:34 Dose: 10 mg Duloxetine HCl (Cymbalta) 30 mg PO DAILY [facility] PRN Reason: Protocol Stop: 08/11/17 08:59 Last Admin: 06/13/17 08:34 Dose: 30 mg Enoxaparin Sodium (Lovenox) 30 mg SUBQ DAILY [facility] Stop: 08/10/17 08:59 Last Admin: 06/13/17 08:43 Dose: Not Given Glucagon (Glucagen) 1 mg IM DAILY PRN PRN Reason: Anaphylaxis Stop: 08/09/17 22:59 Hydromorphone HCl (Dilaudid) 2 mg PO QID PRN PRN Reason: Pain (Moderate) Stop: 08/10/17 13:10 Levofloxacin (Levaquin Pb) 500 mg in 100 mls @ 100 mls/hr IV Q24HR [facility] Stop: 08/10/17 00:00 Last Infusion: 06/13/17 08:26 Dose: Infused Metronidazole (Flagyl) 500 mg in 100 mls @ 100 mls/hr IV Q8HR [facility] Stop: 08/09/17 22:59 Last Infusion: 06/13/17 08:26 Dose: Infused Sodium Chloride (Nacl 0.9%) 1,000 mls @ 60 mls/hr IV .[id number] [facility] Stop: 08/09/17 22:44 Insulin Aspart (Novolog) 0 units SUBQ ACHS [facility] PRN Reason: Protocol Stop: 08/10/17 07:29 Last Admin: 06/13/17 06:51 Dose: Not Given Insulin Detemir (Levemir Insulin) 30 units SUBQ HS [facility] PRN Reason: Protocol Stop: 08/10/17 20:59 Last Admin: 06/12/17 21:38 Dose: 30 units Insulin Detemir (Levemir Insulin) 26 units SUBQ QAM [facility] PRN Reason: Protocol Stop: 08/10/17 08:59 Last Admin: 06/13/17 08:35 Dose: 26 units Ipratropium [place] (Atrovent Neb 0.5mg/2.5ml) 0.5 mg IH Q2HRT PRN PRN Reason: Shortness of Breath or Wheeze Stop: 08/09/17 22:31 Lactobacillus Rhamnosus (Culturelle 15b) 1 each PO DAILY [facility] Stop: 08/11/17 08:59 Last Admin: 06/13/17 08:34 Dose: 1 each Miscellaneous (Probiotic Screen) 1 ea [facility] PRN PRN PRN Reason: PROTOCOL Stop: 08/10/17 11:59 Morphine Sulfate (Morphine) 2 mg IVP Q4H PRN PRN Reason: Severe Pain Stop: 08/09/17 22:34 Last Admin: 02/03/18 08:32 Dose: 2 mg Ondansetron HCl (Zofran) 4 mg IV Q8H PRN PRN Reason: Nausea / Vomiting Stop: 08/09/17 22:31 Pantoprazole Sodium (Protonix) 40 mg PO BID [facility] Stop: 08/10/17 08:59 Last Admin: 06/13/17 08:34 Dose: 40 mg Pregabalin (Lyrica) 50 mg PO TID [facility] Stop: 08/10/17 08:59 Last Admin: 06/13/17 08:34 Dose: 50 mg Quetiapine Fumarate (Seroquel) 12.5 mg PO HS MARYSOL PRN Reason: Protocol Stop: 08/10/17 20:59 Last Admin: 06/12/17 21:20 Dose: 12.5 mg Senna (Senna) 8.6 mg PO DAILY MARYSOL Stop: 08/10/17 08:59 Last Admin: 06/13/17 08:34 Dose: 8.6 mg Zolpidem Tartrate (Ambien) 10 mg PO HS PRN PRN Reason: Insomnia Stop: 08/09/17 22:50 Last Admin: 06/12/17 21:21 Dose: 10 mg Assessment/Plan - Assessment Assessment: 57 YO FEMALE WITH EPIGASTRIC PAIN EGD SHOWED GASTRITIS LFTS AND LIPASE ARE NORMAL 1.CONT PROTONIX 2.CONT SUPP CARE 3.IF PAIN PERSIST CONSIDER MRCP
[2017-06-13 09:28] LABS: % BASOPHILS 0.5 % (0.0-2.0); % EOSINOPHILS 3.8 % (0.0-5.0); % LYMPHOCYTES 39.1 % (20.0-50.0); % MONOCYTES 13.1 % (2.0-10.0); % NEUTROPHILS 43.5 % (40.0-80.0); EOSINOPHILE ABSOLUTE 0.3 Th/cmm (0.1-0.4); HEMOGLOBIN 10.6 gm/dL (12-16); MEAN CELL VOLUME 70.3 fl (81-100); MEAN CORPUSCULAR HEMOGLOBIN 22.6 pg (27.0-31.0); MEAN CORPUSCULAR HGB CONC 32.2 pg (28.0-36.0); MEAN PLATELET VOLUME 7.7 fl; NEUTROPHILE ABSOLUTE 3.3 Th/cmm (1.8-8.0); PLATELET COUNT 453 Th/cmm (150-400); RED BLOOD COUNT 4.69 Mil/cmm (3.80-5.10); RED CELL DISTRIBUTION WIDTH 15.5 % (11.5-20.0); WHITE BLOOD COUNT 7.6 Th/cmm (4.8-10.8)
[2017-06-13 09:29] LABS: HEMATOCRIT 32.9 % (41.0-60)
[2017-06-13 09:38] LABS: ALB/GLOB RATIO 0.7 (1.0-1.8); ALBUMIN 2.9 gm/dL (3.7-5.3); ALKALINE PHOSPHATASE 123 U/L (34-104); ANION GAP 10.4 (7.0-16.0); BILIRUBIN,TOTAL 0.3 mg/dL (0.3-1.0); BUN - UREA NITROGEN 6 mg/dL (7-25); CALCIUM SERUM 8.7 mg/dL (8.6-10.3); CARBON DIOXIDE 22.4 mEq/L (21.0-31.0); CHLORIDE 103 mEq/L (98-107); CREATININE - SERUM 0.6 mg/dL (0.6-1.2); GFR AFRICAN-AMERICAN > 60.0 ml/min (>90); GFR NON AFRICAN-AMERICAN > 60.0 ml/min; GLUCOSE 157 mg/dL (70-105); POTASSIUM SERUM 3.8 mEq/L (3.5-5.1); SGOT 12 U/L (13-39); SGPT/ALT 10 U/L (7-52); SODIUM SERUM 132 mEq/L (136-145); TOTAL PROTEIN,SERUM 7.3 gm/dL (6.0-8.3)
[2017-06-13] MEDS: Sodium Chloride 0.9% 1,000 ML IV SCH (13:15)
--- NOTE | 2017-06-13 16:49 | Internal Medicine Prog Note ---
Internal Medicine Subjective - Subjective Service Date: 06/13/17 Patient seen and examined:: with staff Patient is:: awake Per staff patient has:: tolerating meds Internal Medicine Objective - Results Result Diagrams: 06/13/17 09:00 06/13/17 09:00 Recent Labs: Laboratory Last Values WBC 7.6 Th/cmm (4.8-10.8) D 06/13/17 09:00 RBC 4.69 Mil/cmm (3.80-5.10) 06/13/17 09:00 Hgb 10.6 gm/dL (12-16) L 06/13/17 09:00 Hct 32.9 % (41.0-60) L D 06/13/17 09:00 MCV 70.3 fl (81-100) L 06/13/17 09:00 MCH 22.6 pg (27.0-31.0) L 06/13/17 09:00 MCHC Differential 32.2 pg (28.0-36.0) 06/13/17 09:00 RDW 15.5 % (11.5-20.0) 06/13/17 09:00 Plt Count 453 Th/cmm (150-400) H 06/13/17 09:00 MPV 7.7 fl 06/13/17 09:00 Neutrophils % 43.5 % (40.0-80.0) 06/13/17 09:00 Lymphocytes % 39.1 % (20.0-50.0) 06/13/17 09:00 Monocytes % 13.1 % (2.0-10.0) H 06/13/17 09:00 Eosinophils % 3.8 % (0.0-5.0) 06/13/17 09:00 Basophils % 0.5 % (0.0-2.0) 06/13/17 09:00 Total Retics Counted 0.8 % (0.5-1.5) 06/12/17 06:10 Absolute Retic 31.6 Th/cmm 06/12/17 06:10 Corrected Retic Count 0.5 % (0.5-1.5) 06/12/17 06:10 PT 10.9 SECONDS (9.5-11.5) 06/12/17 06:10 INR 1.05 (0.5-1.4) 06/12/17 06:10 Sodium 132 mEq/L (136-145) L 06/13/17 09:00 Potassium 3.8 mEq/L (3.5-5.1) 06/13/17 09:00 Chloride 103 mEq/L (98-107) 06/13/17 09:00 Carbon Dioxide 22.4 mEq/L (21.0-31.0) 06/13/17 09:00 Anion Gap 10.4 (7.0-16.0) 06/13/17 09:00 BUN 6 mg/dL (7-25) L 06/13/17 09:00 Creatinine 0.6 mg/dL (0.6-1.2) 06/13/17 09:00 Est GFR ( Amer) > 60.0 ml/min (>90) 06/13/17 09:00 Est GFR (Non-Af Amer) > 60.0 ml/min 06/13/17 09:00 BUN/Creatinine Ratio 10.0 06/13/17 09:00 Glucose 157 mg/dL (70-105) H 06/13/17 09:00 POC Glucose 132 MG/DL (70 - 105) H 06/13/17 13:12 Hemoglobin A1c % 6.5 % (4.0-6.0) H 06/10/17 19:05 Calcium 8.7 mg/dL (8.6-10.3) 06/13/17 09:00 Magnesium 2.1 mg/dL (1.9-2.7) 06/12/17 06:10 Total Bilirubin 0.3 mg/dL (0.3-1.0) 06/13/17 09:00 AST 12 U/L (13-39) L 06/13/17 09:00 ALT 10 U/L (7-52) 06/13/17 09:00 Alkaline Phosphatase 123 U/L (34-104) H 06/13/17 09:00 Creatine Kinase 108 U/L (30-223) 06/10/17 19:05 Troponin I 0.01 ng/mL (0.01-0.05) 06/10/17 19:05 B-Natriuretic Peptide 47.9 pg/mL (5.0-100.0) 06/10/17 19:05 Total Protein 7.3 gm/dL (6.0-8.3) 06/13/17 09:00 Albumin 2.9 gm/dL (3.7-5.3) L 06/13/17 09:00 Globulin 4.4 gm/dL 06/13/17 09:00 Albumin/Globulin Ratio 0.7 (1.0-1.8) L 06/13/17 09:00 Triglycerides 165 mg/dL (<150) H 06/10/17 19:05 Cholesterol 97 mg/dL (<200) 06/10/17 19:05 LDL Cholesterol Direct 61 mg/dL (75-193) L 06/10/17 19:05 HDL Cholesterol 18 mg/dL (23-92) L 06/10/17 19:05 Amylase 21 U/L (29-103) L 06/10/17 19:05 Lipase 11 U/L (11-82) 06/12/17 06:10 TSH 2.25 uIU/ml (0.34-5.60) 06/12/17 06:10 Serum , Qual NEGATIVE (NEGATIVE) 06/10/17 19:05 Urine Source CLEAN C 06/10/17 17:58 Urine Color YELLOW 06/10/17 17:58 Urine Clarity HAZY (CLEAR) 06/10/17 17:58 Urine pH 7.5 (4.6 - 8.0) 06/10/17 17:58 Ur Specific [place] 1.015 (1.005-1.030) 06/10/17 17:58 Urine Protein 30 mg/dL (NEGATIVE) H 06/10/17 17:58 Urine Glucose (UA) NEGATIVE mg/dL (NEGATIVE) 06/10/17 17:58 Urine Ketones NEGATIVE mg/dL (NEGATIVE) 06/10/17 17:58 Urine Blood SMALL (NEGATIVE) H 06/10/17 17:58 Urine Nitrate NEGATIVE (NEGATIVE) 06/10/17 17:58 Urine Bilirubin NEGATIVE (NEGATIVE) 06/10/17 17:58 Urine Urobilinogen 1.0 E.U./dL (0.2 - 1.0) 06/10/17 17:58 Ur Leukocyte Esterase MODERATE (NEGATIVE) H 06/10/17 17:58 Urine RBC 5-10 /hpf (0-5) H 06/10/17 17:58 Urine WBC 10-25 /hpf (0-5) H 06/10/17 17:58 Ur Epithelial Cells FEW /lpf (FEW) 06/10/17 17:58 Urine Bacteria 2+ /hpf (NONE SEEN) H 06/10/17 17:58 Urine Test NEGATIVE 06/10/17 17:58 Helicobacter pylori Ab NEGATIVE (NEGATIVE) 06/12/17 11:10 - Physical Exam Vitals and I&O: Vital Signs Temp 98.0 F 06/13/17 15:16 Pulse 77 06/13/17 15:16 Resp 18 06/13/17 15:16 BP 95/55 06/13/17 15:16 Pulse Ox 99 06/13/17 15:16 Intake & Output 06/12/17 06/13/17 06/13/17 18:59 06:59 18:59 Intake Total 200 600 200 Output Total 3300 Balance 200 -2700 200 Weight (lbs) 128 lb Intake: Intake, IV Amount 200 100 200 Levofloxacin 500mg/100mL 100 500 mg In 100 ml @ 100 mls/hr IV Q24HR [facility] Rx#: [id number] metroNIDAZOLE 500mg/NS 200 100 100 100mL 500 mg In 100 ml @ 100 mls/hr IV Q8HR [facility] Rx #:[id number] Oral 500 Output: Urine 3300 Other: # Bowel Movements 0 Active Medications: Current Medications Acetaminophen (Tylenol) 650 mg PO Q4HR PRN PRN Reason: Pain (Mild) Stop: 08/09/17 22:29 Acetaminophen (Tylenol) 650 mg PO Q4H PRN PRN Reason: Fever above 101 Stop: 08/09/17 22:31 Al Hydrox/Mg Hydrox/Simethicone (Maalox) 30 ml PO Q6H PRN PRN Reason: Dyspepsia Stop: 08/09/17 22:31 Albuterol Sulfate (Albuterol 2.5mg/3ml Neb Ud) 2.5 mg HHN Q2HRT PRN PRN Reason: Shortness of Breath or Wheeze Stop: 08/09/17 22:31 Baclofen (Lioresal) 10 mg PO QID [facility] Stop: 08/10/17 08:59 Last Admin: 06/13/17 13:03 Dose: 10 mg Duloxetine HCl (Cymbalta) 30 mg PO DAILY [facility] PRN Reason: Protocol Stop: 08/11/17 08:59 Last Admin: 06/13/17 08:34 Dose: 30 mg Enoxaparin Sodium (Lovenox) 30 mg SUBQ DAILY [facility] Stop: 08/10/17 08:59 Last Admin: 06/13/17 08:43 Dose: Not Given Glucagon (Glucagen) 1 mg IM DAILY PRN PRN Reason: Anaphylaxis Stop: 08/09/17 22:59 Hydromorphone HCl (Dilaudid) 2 mg PO QID PRN PRN Reason: Pain (Moderate) Stop: 08/10/17 13:10 Levofloxacin (Levaquin Pb) 500 mg in 100 mls @ 100 mls/hr IV Q24HR [facility] Stop: 08/10/17 00:00 Last Infusion: 06/13/17 08:26 Dose: Infused Metronidazole (Flagyl) 500 mg in 100 mls @ 100 mls/hr IV Q8HR [facility] Stop: 08/09/17 22:59 Last Admin: 06/13/17 13:02 Dose: 100 mls/hr Sodium Chloride (Nacl 0.9%) 1,000 mls @ 60 mls/hr IV .[id number] [facility] Stop: 08/09/17 22:44 Last Admin: 06/13/17 13:15 Dose: 100 mls/hr Insulin Aspart (Novolog) 0 units SUBQ ACHS [facility] PRN Reason: Protocol Stop: 08/10/17 07:29 Last Admin: 06/13/17 13:13 Dose: Not Given Insulin Detemir (Levemir Insulin) 30 units SUBQ HS [facility] PRN Reason: Protocol Stop: 08/10/17 20:59 Last Admin: 06/12/17 21:38 Dose: 30 units Insulin Detemir (Levemir Insulin) 26 units SUBQ QAM [facility] PRN Reason: Protocol Stop: 08/10/17 08:59 Last Admin: 06/13/17 08:35 Dose: 26 units Ipratropium [place] (Atrovent Neb 0.5mg/2.5ml) 0.5 mg IH Q2HRT PRN PRN Reason: Shortness of Breath or Wheeze Stop: 08/09/17 22:31 Lactobacillus Rhamnosus (Culturelle 15b) 1 each PO DAILY [facility] Stop: 08/11/17 08:59 Last Admin: 06/13/17 08:34 Dose: 1 each Miscellaneous (Probiotic Screen) 1 ea MC PRN PRN PRN Reason: PROTOCOL Stop: 08/10/17 11:59 Morphine Sulfate (Morphine) 2 mg IVP Q4H PRN PRN Reason: Severe Pain Stop: 08/09/17 22:34 Last Admin: 06/13/17 13:03 Dose: 2 mg Ondansetron HCl (Zofran) 4 mg IV Q8H PRN PRN Reason: Nausea / Vomiting Stop: 08/09/17 22:31 Pantoprazole Sodium (Protonix) 40 mg PO BID [facility] Stop: 08/10/17 08:59 Last Admin: 06/13/17 08:34 Dose: 40 mg Pregabalin (Lyrica) 50 mg PO TID [facility] Stop: 08/10/17 08:59 Last Admin: 06/13/17 14:13 Dose: 50 mg Quetiapine Fumarate (Seroquel) 12.5 mg PO HS [facility] PRN Reason: Protocol Stop: 08/10/17 20:59 Last Admin: 06/12/17 21:20 Dose: 12.5 mg Senna (Senna) 8.6 mg PO DAILY [facility] Stop: 08/10/17 08:59 Last Admin: 06/13/17 08:34 Dose: 8.6 mg Zolpidem Tartrate (Ambien) 10 mg PO HS PRN PRN Reason: Insomnia Stop: 08/09/17 22:50 Last Admin: 06/12/17 21:21 Dose: 10 mg General: alert HEENT: NC/AT, PERRLA Neck: Supple Lungs: CTAB Cardiovascular: RRR, Normal S1, Normal S2 Abdomen: soft, non-tender, non-distended Neurological: alert Internal Medicine Assmt/Plan - Assessment Assessment: abdominal pain acute uti hyponatremia constipation - Plan Plan: cbc/bmp in am continue ivabx psych f/u continue current plan of care Nutritional Asmnt/Malnutr-PDOC - Dietary Evaluation Malnutrition Findings (Please click <Entered> for more info): Nutritional Asmnt/Malnutrition Start: 06/11/17 17: 35 Text: Status: Complete Freq: Document 06/11/17 17:36 LCHENG (Rec: 06/11/17 17:59 LCHENG [email or web address]) Nutritional Asmnt/Malnutrition Patient General Information Nutritional Screening High Risk Diagnosis abdominal pain, UTI Pertinent Medical Hx/Surgical Hx HTN, DM, CD, CVA/TIA, paraplegia, anemia, MRSA, dyslipidemia, PUD/GERD, ESRD Subjective Information Consult received for wounds. Pt seen lying in bed at time of visit. Pt reported appetite ok, she only took milk and pudding for lunch, she did not like the soup and cranberry juice. Pt understand the importance of limiting carb intake. But she has not been following any diet restrictions. pt denied N/V. Current Diet Order/ Nutrition Support full liquid Pertinent Medications glucagen, novolog, levemir, culturelle, levaquin, protonix , seroquel, nacl 0.9% Pertinent Labs 06/10 na 130, K 3.9, Cl 101, BUN 10, Cr 0.5, Glucose 230, A1c 6.5, ca 8.3, Alb 2.6 Nutritional Hx/Data Height 5 ft 1 in Height (Calculated Centimeters) 154.9 Current Weight (lbs) 133 lb Weight (Calculated Kilograms) 60.3 Weight (Calculated Grams) 77363.8 [place] Body Weight 105 % [place] Body Weight 126 Body Mass Index (BMI) 25.1 Weight Status Overweight GI Symptoms GI Symptoms None Difficult in: None Skin Integrity/Comment: preesure ulcer to right buttocks, ulceration to left buttocks Estimated Nutritional Goals BEE in Kcals: Using Current wt Calories/Kcals/Kg 25-30 Kcals Calculated 4778-1903 Protein: Using Current wt Protein g/k.2-1.4 Protein Calculated 72-84 Fluid: ml 1500-1800ml (1ml/kcal) Nutritional Problem 1. Problem Problem increased nutrition needs ( calorie and protein) Etiology wound healing Signs/Symptoms: pressure ulcer Malnutrition Alert Protein-Calorie Malnutrition N/A Is there a minimum of two criteria No selected? Query Text:Check all the applicable criteria. A minimum of two criteria are recommended for diagnosis of either severe or non-severe malnutrition. Intervention/Recommendation Comments 1. Receommend Boost Glucose Control TID for full liquid diet to supplement nutrition intake. 2. MD to consider zinc and vitamin c to help with wound healing 3. Monitor PO intake, wt, labs and skin integrity 4. F/U as high risk in 2-3 days, 2/3-2/4 Expected Outcomes/Goals Expected Outcomes/Goals 1. PO intake to meet at least 75% of nutritional needs. 2. Wt stability, wound to heal , labs to approach WNL.
[2017-06-14] MEDS: Levofloxacin 500mg/100mL 500 MG/100 ML BAG IV SCH ×2 (01:59→23:45)
[2017-06-14] MEDS: Sodium Chloride 0.9% 1,000 ML IV SCH ×2 (02:02→21:06)
[2017-06-14] MEDS: Morphine Sulfate 2 mg/mL 1mL Syr IVP PRN ×4 (04:45→19:44)
[2017-06-14] MEDS: metroNIDAZOLE 500mg/NS 100mL 500 MG/100 ML BAG IV SCH ×3 (04:45→20:54)
[2017-06-14] MEDS: INSULIN ASPART, RECOMBINANT 100 UNITS/ML SUBQ SCH ×4 (07:01→20:52)
--- NOTE | 2017-06-14 08:38 | GI Progress Note ---
Subjective - Review of Systems Subjective: SOME ABD PAIN Objective - Results Result Diagrams: 06/13/17 09:00 06/13/17 09:00 Recent Labs: Laboratory Last Values WBC 7.6 Th/cmm (4.8-10.8) D 06/13/17 09:00 RBC 4.69 Mil/cmm (3.80-5.10) 06/13/17 09:00 Hgb 10.6 gm/dL (12-16) L 06/13/17 09:00 Hct 32.9 % (41.0-60) L D 06/13/17 09:00 MCV 70.3 fl (81-100) L 06/13/17 09:00 MCH 22.6 pg (27.0-31.0) L 06/13/17 09:00 MCHC Differential 32.2 pg (28.0-36.0) 06/13/17 09:00 RDW 15.5 % (11.5-20.0) 06/13/17 09:00 Plt Count 453 Th/cmm (150-400) H 06/13/17 09:00 MPV 7.7 fl 06/13/17 09:00 Neutrophils % 43.5 % (40.0-80.0) 06/13/17 09:00 Lymphocytes % 39.1 % (20.0-50.0) 06/13/17 09:00 Monocytes % 13.1 % (2.0-10.0) H 06/13/17 09:00 Eosinophils % 3.8 % (0.0-5.0) 06/13/17 09:00 Basophils % 0.5 % (0.0-2.0) 06/13/17 09:00 Total Retics Counted 0.8 % (0.5-1.5) 06/12/17 06:10 Absolute Retic 31.6 Th/cmm 06/12/17 06:10 Corrected Retic Count 0.5 % (0.5-1.5) 06/12/17 06:10 PT 10.9 SECONDS (9.5-11.5) 06/12/17 06:10 INR 1.05 (0.5-1.4) 06/12/17 06:10 Sodium 132 mEq/L (136-145) L 06/13/17 09:00 Potassium 3.8 mEq/L (3.5-5.1) 06/13/17 09:00 Chloride 103 mEq/L (98-107) 06/13/17 09:00 Carbon Dioxide 22.4 mEq/L (21.0-31.0) 06/13/17 09:00 Anion Gap 10.4 (7.0-16.0) 06/13/17 09:00 BUN 6 mg/dL (7-25) L 06/13/17 09:00 Creatinine 0.6 mg/dL (0.6-1.2) 06/13/17 09:00 Est GFR ( Amer) > 60.0 ml/min (>90) 06/13/17 09:00 Est GFR (Non-Af Amer) > 60.0 ml/min 06/13/17 09:00 BUN/Creatinine Ratio 10.0 06/13/17 09:00 Glucose 157 mg/dL (70-105) H 06/13/17 09:00 POC Glucose 78 MG/DL (70 - 105) 06/14/17 06:58 Hemoglobin A1c % 6.5 % (4.0-6.0) H 06/10/17 19:05 Calcium 8.7 mg/dL (8.6-10.3) 06/13/17 09:00 Magnesium 2.1 mg/dL (1.9-2.7) 06/12/17 06:10 Total Bilirubin 0.3 mg/dL (0.3-1.0) 06/13/17 09:00 AST 12 U/L (13-39) L 06/13/17 09:00 ALT 10 U/L (7-52) 06/13/17 09:00 Alkaline Phosphatase 123 U/L (34-104) H 06/13/17 09:00 Creatine Kinase 108 U/L (30-223) 06/10/17 19:05 Troponin I 0.01 ng/mL (0.01-0.05) 06/10/17 19:05 B-Natriuretic Peptide 47.9 pg/mL (5.0-100.0) 06/10/17 19:05 Total Protein 7.3 gm/dL (6.0-8.3) 06/13/17 09:00 Albumin 2.9 gm/dL (3.7-5.3) L 06/13/17 09:00 Globulin 4.4 gm/dL 06/13/17 09:00 Albumin/Globulin Ratio 0.7 (1.0-1.8) L 06/13/17 09:00 Triglycerides 165 mg/dL (<150) H 06/10/17 19:05 Cholesterol 97 mg/dL (<200) 06/10/17 19:05 LDL Cholesterol Direct 61 mg/dL (75-193) L 06/10/17 19:05 HDL Cholesterol 18 mg/dL (23-92) L 06/10/17 19:05 Amylase 21 U/L (29-103) L 06/10/17 19:05 Lipase 11 U/L (11-82) 06/12/17 06:10 TSH 2.25 uIU/ml (0.34-5.60) 06/12/17 06:10 Serum , Qual NEGATIVE (NEGATIVE) 06/10/17 19:05 Urine Source CLEAN C 06/10/17 17:58 Urine Color YELLOW 06/10/17 17:58 Urine Clarity HAZY (CLEAR) 06/10/17 17:58 Urine pH 7.5 (4.6 - 8.0) 06/10/17 17:58 Ur Specific [place] 1.015 (1.005-1.030) 06/10/17 17:58 Urine Protein 30 mg/dL (NEGATIVE) H 06/10/17 17:58 Urine Glucose (UA) NEGATIVE mg/dL (NEGATIVE) 06/10/17 17:58 Urine Ketones NEGATIVE mg/dL (NEGATIVE) 06/10/17 17:58 Urine Blood SMALL (NEGATIVE) H 06/10/17 17:58 Urine Nitrate NEGATIVE (NEGATIVE) 06/10/17 17:58 Urine Bilirubin NEGATIVE (NEGATIVE) 06/10/17 17:58 Urine Urobilinogen 1.0 E.U./dL (0.2 - 1.0) 06/10/17 17:58 Ur Leukocyte Esterase MODERATE (NEGATIVE) H 06/10/17 17:58 Urine RBC 5-10 /hpf (0-5) H 06/10/17 17:58 Urine WBC 10-25 /hpf (0-5) H 06/10/17 17:58 Ur Epithelial Cells FEW /lpf (FEW) 06/10/17 17:58 Urine Bacteria 2+ /hpf (NONE SEEN) H 06/10/17 17:58 Urine Test NEGATIVE 06/10/17 17:58 Helicobacter pylori Ab NEGATIVE (NEGATIVE) 06/12/17 11:10 - Physical Exam Vitals and I&O: Vital Signs Temp 97.2 F 06/14/17 08:14 Pulse 62 06/14/17 08:14 Resp 18 06/14/17 08:14 BP 80/47 06/14/17 08:14 Pulse Ox 99 06/14/17 08:14 Intake & Output 06/13/17 06/14/17 06/14/17 18:59 06:59 18:59 Intake Total 1100 1540 Output Total 950 Balance 1100 590 Weight (lbs) 58.06 kg 58.06 kg Intake: Intake, IV Amount 200 1300 Levofloxacin 500mg/100mL 100 100 500 mg In 100 ml @ 100 mls/hr IV Q24HR [facility] Rx#: [id number] Sodium Chloride 0.9% 1, 1000 000 ml @ 60 mls/hr IV . [id number] [facility] Rx#:[id number] metroNIDAZOLE 500mg/NS 100 200 100mL 500 mg In 100 ml @ 100 mls/hr IV Q8HR [facility] Rx #:[id number] Oral 900 240 Output: Urine 950 Other: # Voids 1,100 # Bowel Movements 0 0 Active Medications: Current Medications Acetaminophen (Tylenol) 650 mg PO Q4HR PRN PRN Reason: Pain (Mild) Stop: 08/09/17 22:29 Acetaminophen (Tylenol) 650 mg PO Q4H PRN PRN Reason: Fever above 101 Stop: 08/09/17 22:31 Al Hydrox/Mg Hydrox/Simethicone (Maalox) 30 ml PO Q6H PRN PRN Reason: Dyspepsia Stop: 08/09/17 22:31 Albuterol Sulfate (Albuterol 2.5mg/3ml Neb Ud) 2.5 mg HHN Q2HRT PRN PRN Reason: Shortness of Breath or Wheeze Stop: 08/09/17 22:31 Baclofen (Lioresal) 10 mg PO QID [facility] Stop: 08/10/17 08:59 Last Admin: 06/13/17 20:45 Dose: 10 mg Duloxetine HCl (Cymbalta) 30 mg PO DAILY [facility] PRN Reason: Protocol Stop: 08/11/17 08:59 Last Admin: 06/13/17 08:34 Dose: 30 mg Enoxaparin Sodium (Lovenox) 30 mg SUBQ DAILY [facility] Stop: 08/10/17 08:59 Last Admin: 06/13/17 08:43 Dose: Not Given Glucagon (Glucagen) 1 mg IM DAILY PRN PRN Reason: Anaphylaxis Stop: 08/09/17 22:59 Hydromorphone HCl (Dilaudid) 2 mg PO QID PRN PRN Reason: Pain (Moderate) Stop: 08/10/17 13:10 Levofloxacin (Levaquin Pb) 500 mg in 100 mls @ 100 mls/hr IV Q24HR [facility] Stop: 08/10/17 00:00 Last Infusion: 06/14/17 04:46 Dose: Infused Metronidazole (Flagyl) 500 mg in 100 mls @ 100 mls/hr IV Q8HR [facility] Stop: 08/09/17 22:59 Last Admin: 06/14/17 04:45 Dose: 100 mls/hr Sodium Chloride (Nacl 0.9%) 1,000 mls @ 60 mls/hr IV .[id number] [facility] Stop: 08/09/17 22:44 Last Admin: 06/14/17 02:02 Dose: 100 mls/hr Insulin Aspart (Novolog) 0 units SUBQ ACHS [facility] PRN Reason: Protocol Stop: 08/10/17 07:29 Last Admin: 06/14/17 07:01 Dose: Not Given Insulin Detemir (Levemir Insulin) 30 units SUBQ HS [facility] PRN Reason: Protocol Stop: 08/10/17 20:59 Last Admin: 06/13/17 20:46 Dose: 30 units Insulin Detemir (Levemir Insulin) 26 units SUBQ QAM [facility] PRN Reason: Protocol Stop: 08/10/17 08:59 Last Admin: 06/13/17 08:35 Dose: 26 units Ipratropium [place] (Atrovent Neb 0.5mg/2.5ml) 0.5 mg IH Q2HRT PRN PRN Reason: Shortness of Breath or Wheeze Stop: 08/09/17 22:31 Lactobacillus Rhamnosus (Culturelle 15b) 1 each PO DAILY [facility] Stop: 08/11/17 08:59 Last Admin: 06/13/17 08:34 Dose: 1 each Miscellaneous (Probiotic Screen) 1 ea MC PRN PRN PRN Reason: PROTOCOL Stop: 08/10/17 11:59 Morphine Sulfate (Morphine) 2 mg IVP Q4H PRN PRN Reason: Severe Pain Stop: 08/09/17 22:34 Last Admin: 06/14/17 04:45 Dose: 2 mg Ondansetron HCl (Zofran) 4 mg IV Q8H PRN PRN Reason: Nausea / Vomiting Stop: 08/09/17 22:31 Pantoprazole Sodium (Protonix) 40 mg PO BID [facility] Stop: 08/10/17 08:59 Last Admin: 06/13/17 17:22 Dose: 40 mg Pregabalin (Lyrica) 50 mg PO TID [facility] Stop: 08/10/17 08:59 Last Admin: 06/13/17 20:44 Dose: 50 mg Quetiapine Fumarate (Seroquel) 12.5 mg PO HS [facility] PRN Reason: Protocol Stop: 08/10/17 20:59 Last Admin: 06/13/17 20:45 Dose: 12.5 mg Senna (Senna) 8.6 mg PO DAILY [facility] Stop: 08/10/17 08:59 Last Admin: 06/13/17 08:34 Dose: 8.6 mg Zolpidem Tartrate (Ambien) 10 mg PO HS PRN PRN Reason: Insomnia Stop: 08/09/17 22:50 Last Admin: 06/12/17 21:21 Dose: 10 mg Assessment/Plan - Assessment Assessment: 57 YO FEMALE WITH EPIGASTRIC PAIN EGD SHOWED GASTRITIS LFTS AND LIPASE ARE NORMAL 1.CONT PROTONIX 2.CONT SUPP CARE 3.IF PAIN PERSIST CONSIDER MRCP
[2017-06-14] MEDS: Pantoprazole 40 mg EC Tab PO SCH ×2 (09:12→16:16)
[2017-06-14] MEDS: Multivitamin w/ Minerals Tab PO SCH (09:12)
[2017-06-14] MEDS: Lactobacillus Rhamnosus GG 15 Billion CFU CAP.SPRINK PO SCH (09:12)
[2017-06-14] MEDS: Insulin Detemir 100 units/mL 10mL Vial SUBQ SCH ×2 (09:13→20:53)
[2017-06-14] MEDS: Enoxaparin 30 mg/0.3 mL 0.3mL Syr SUBQ SCH (09:19)
--- NOTE | 2017-06-14 15:38 | Internal Medicine Prog Note ---
Internal Medicine Subjective - Subjective Service Date: 06/14/17 Patient seen and examined:: with staff Patient is:: awake Per staff patient has:: tolerating meds Internal Medicine Objective - Results Result Diagrams: 06/13/17 09:00 06/13/17 09:00 Recent Labs: Laboratory Last Values WBC 7.6 Th/cmm (4.8-10.8) D 06/13/17 09:00 RBC 4.69 Mil/cmm (3.80-5.10) 06/13/17 09:00 Hgb 10.6 gm/dL (12-16) L 06/13/17 09:00 Hct 32.9 % (41.0-60) L D 06/13/17 09:00 MCV 70.3 fl (81-100) L 06/13/17 09:00 MCH 22.6 pg (27.0-31.0) L 06/13/17 09:00 MCHC Differential 32.2 pg (28.0-36.0) 06/13/17 09:00 RDW 15.5 % (11.5-20.0) 06/13/17 09:00 Plt Count 453 Th/cmm (150-400) H 06/13/17 09:00 MPV 7.7 fl 06/13/17 09:00 Neutrophils % 43.5 % (40.0-80.0) 06/13/17 09:00 Lymphocytes % 39.1 % (20.0-50.0) 06/13/17 09:00 Monocytes % 13.1 % (2.0-10.0) H 06/13/17 09:00 Eosinophils % 3.8 % (0.0-5.0) 06/13/17 09:00 Basophils % 0.5 % (0.0-2.0) 06/13/17 09:00 Total Retics Counted 0.8 % (0.5-1.5) 06/12/17 06:10 Absolute Retic 31.6 Th/cmm 06/12/17 06:10 Corrected Retic Count 0.5 % (0.5-1.5) 06/12/17 06:10 PT 10.9 SECONDS (9.5-11.5) 06/12/17 06:10 INR 1.05 (0.5-1.4) 06/12/17 06:10 Sodium 132 mEq/L (136-145) L 06/13/17 09:00 Potassium 3.8 mEq/L (3.5-5.1) 06/13/17 09:00 Chloride 103 mEq/L (98-107) 06/13/17 09:00 Carbon Dioxide 22.4 mEq/L (21.0-31.0) 06/13/17 09:00 Anion Gap 10.4 (7.0-16.0) 06/13/17 09:00 BUN 6 mg/dL (7-25) L 06/13/17 09:00 Creatinine 0.6 mg/dL (0.6-1.2) 06/13/17 09:00 Est GFR ( Amer) > 60.0 ml/min (>90) 06/13/17 09:00 Est GFR (Non-Af Amer) > 60.0 ml/min 06/13/17 09:00 BUN/Creatinine Ratio 10.0 06/13/17 09:00 Glucose 157 mg/dL (70-105) H 06/13/17 09:00 POC Glucose 120 MG/DL (70 - 105) H 06/14/17 12:11 Hemoglobin A1c % 6.5 % (4.0-6.0) H 06/10/17 19:05 Calcium 8.7 mg/dL (8.6-10.3) 06/13/17 09:00 Magnesium 2.1 mg/dL (1.9-2.7) 06/12/17 06:10 Total Bilirubin 0.3 mg/dL (0.3-1.0) 06/13/17 09:00 AST 12 U/L (13-39) L 06/13/17 09:00 ALT 10 U/L (7-52) 06/13/17 09:00 Alkaline Phosphatase 123 U/L (34-104) H 06/13/17 09:00 Creatine Kinase 108 U/L (30-223) 06/10/17 19:05 Troponin I 0.01 ng/mL (0.01-0.05) 06/10/17 19:05 B-Natriuretic Peptide 47.9 pg/mL (5.0-100.0) 06/10/17 19:05 Total Protein 7.3 gm/dL (6.0-8.3) 06/13/17 09:00 Albumin 2.9 gm/dL (3.7-5.3) L 06/13/17 09:00 Globulin 4.4 gm/dL 06/13/17 09:00 Albumin/Globulin Ratio 0.7 (1.0-1.8) L 06/13/17 09:00 Triglycerides 165 mg/dL (<150) H 06/10/17 19:05 Cholesterol 97 mg/dL (<200) 06/10/17 19:05 LDL Cholesterol Direct 61 mg/dL (75-193) L 06/10/17 19:05 HDL Cholesterol 18 mg/dL (23-92) L 06/10/17 19:05 Amylase 21 U/L (29-103) L 06/10/17 19:05 Lipase 11 U/L (11-82) 06/12/17 06:10 TSH 2.25 uIU/ml (0.34-5.60) 06/12/17 06:10 Serum , Qual NEGATIVE (NEGATIVE) 06/10/17 19:05 Urine Source CLEAN C 06/10/17 17:58 Urine Color YELLOW 06/10/17 17:58 Urine Clarity HAZY (CLEAR) 06/10/17 17:58 Urine pH 7.5 (4.6 - 8.0) 06/10/17 17:58 Ur Specific [place] 1.015 (1.005-1.030) 06/10/17 17:58 Urine Protein 30 mg/dL (NEGATIVE) H 06/10/17 17:58 Urine Glucose (UA) NEGATIVE mg/dL (NEGATIVE) 06/10/17 17:58 Urine Ketones NEGATIVE mg/dL (NEGATIVE) 06/10/17 17:58 Urine Blood SMALL (NEGATIVE) H 06/10/17 17:58 Urine Nitrate NEGATIVE (NEGATIVE) 06/10/17 17:58 Urine Bilirubin NEGATIVE (NEGATIVE) 06/10/17 17:58 Urine Urobilinogen 1.0 E.U./dL (0.2 - 1.0) 06/10/17 17:58 Ur Leukocyte Esterase MODERATE (NEGATIVE) H 06/10/17 17:58 Urine RBC 5-10 /hpf (0-5) H 06/10/17 17:58 Urine WBC 10-25 /hpf (0-5) H 06/10/17 17:58 Ur Epithelial Cells FEW /lpf (FEW) 06/10/17 17:58 Urine Bacteria 2+ /hpf (NONE SEEN) H 06/10/17 17:58 Urine Test NEGATIVE 06/10/17 17:58 Helicobacter pylori Ab NEGATIVE (NEGATIVE) 06/12/17 11:10 - Physical Exam Vitals and I&O: Vital Signs Temp 97.2 F 06/14/17 08:14 Pulse 62 06/14/17 08:14 Resp 18 06/14/17 08:14 BP 80/47 06/14/17 08:14 Pulse Ox 99 06/14/17 08:14 Intake & Output 06/13/17 06/14/17 06/14/17 18:59 06:59 18:59 Intake Total 1100 1640 Output Total 950 Balance 1100 690 Weight (lbs) 128 lb 128 lb Intake: Intake, IV Amount 200 1400 Levofloxacin 500mg/100mL 100 100 500 mg In 100 ml @ 100 mls/hr IV Q24HR [facility] Rx#: [id number] Sodium Chloride 0.9% 1, 1000 000 ml @ 60 mls/hr IV . [id number] [facility] Rx#:[id number] metroNIDAZOLE 500mg/NS 100 300 100mL 500 mg In 100 ml @ 100 mls/hr IV Q8HR [facility] Rx #:[id number] Oral 900 240 Output: Urine 950 Other: # Voids 1,100 # Bowel Movements 0 0 Active Medications: Current Medications Acetaminophen (Tylenol) 650 mg PO Q4HR PRN PRN Reason: Pain (Mild) Stop: 08/09/17 22:29 Acetaminophen (Tylenol) 650 mg PO Q4H PRN PRN Reason: Fever above 101 Stop: 08/09/17 22:31 Al Hydrox/Mg Hydrox/Simethicone (Maalox) 30 ml PO Q6H PRN PRN Reason: Dyspepsia Stop: 08/09/17 22:31 Albuterol Sulfate (Albuterol 2.5mg/3ml Neb Ud) 2.5 mg HHN Q2HRT PRN PRN Reason: Shortness of Breath or Wheeze Stop: 08/09/17 22:31 Baclofen (Lioresal) 10 mg PO QID [facility] Stop: 08/10/17 08:59 Last Admin: 06/14/17 12:33 Dose: 10 mg Duloxetine HCl (Cymbalta) 30 mg PO DAILY [facility] PRN Reason: Protocol Stop: 08/11/17 08:59 Last Admin: 06/14/17 09:12 Dose: 30 mg Enoxaparin Sodium (Lovenox) 30 mg SUBQ DAILY [facility] Stop: 08/10/17 08:59 Last Admin: 06/14/17 09:19 Dose: 30 mg Glucagon (Glucagen) 1 mg IM DAILY PRN PRN Reason: Anaphylaxis Stop: 08/09/17 22:59 Hydromorphone HCl (Dilaudid) 2 mg PO QID PRN PRN Reason: Pain (Moderate) Stop: 08/10/17 13:10 Levofloxacin (Levaquin Pb) 500 mg in 100 mls @ 100 mls/hr IV Q24HR [facility] Stop: 08/10/17 00:00 Last Infusion: 06/14/17 04:46 Dose: Infused Metronidazole (Flagyl) 500 mg in 100 mls @ 100 mls/hr IV Q8HR [facility] Stop: 08/09/17 22:59 Last Admin: 06/14/17 12:33 Dose: 100 mls/hr Sodium Chloride (Nacl 0.9%) 1,000 mls @ 60 mls/hr IV .[id number] [facility] Stop: 08/09/17 22:44 Last Admin: 06/14/17 02:02 Dose: 100 mls/hr Insulin Aspart (Novolog) 0 units SUBQ ACHS [facility] PRN Reason: Protocol Stop: 08/10/17 07:29 Last Admin: 06/14/17 12:23 Dose: Not Given Insulin Detemir (Levemir Insulin) 30 units SUBQ HS [facility] PRN Reason: Protocol Stop: 08/10/17 20:59 Last Admin: 06/13/17 20:46 Dose: 30 units Insulin Detemir (Levemir Insulin) 26 units SUBQ QAM [facility] PRN Reason: Protocol Stop: 08/10/17 08:59 Last Admin: 06/14/17 09:13 Dose: Not Given Ipratropium [place] (Atrovent Neb 0.5mg/2.5ml) 0.5 mg IH Q2HRT PRN PRN Reason: Shortness of Breath or Wheeze Stop: 08/09/17 22:31 Lactobacillus Rhamnosus (Culturelle 15b) 1 each PO DAILY [facility] Stop: 08/11/17 08:59 Last Admin: 06/14/17 09:12 Dose: 1 each Miscellaneous (Probiotic Screen) 1 ea MC PRN PRN PRN Reason: PROTOCOL Stop: 08/10/17 11:59 Morphine Sulfate (Morphine) 2 mg IVP Q4H PRN PRN Reason: Severe Pain Stop: 08/09/17 22:34 Last Admin: 06/14/17 15:25 Dose: 2 mg Ondansetron HCl (Zofran) 4 mg IV Q8H PRN PRN Reason: Nausea / Vomiting Stop: 08/09/17 22:31 Pantoprazole Sodium (Protonix) 40 mg PO BID [facility] Stop: 08/10/17 08:59 Last Admin: 06/14/17 09:12 Dose: 40 mg Pregabalin (Lyrica) 50 mg PO TID [facility] Stop: 08/10/17 08:59 Last Admin: 06/14/17 09:12 Dose: 50 mg Quetiapine Fumarate (Seroquel) 12.5 mg PO HS [facility] PRN Reason: Protocol Stop: 08/10/17 20:59 Last Admin: 06/13/17 20:45 Dose: 12.5 mg Senna (Senna) 8.6 mg PO DAILY [facility] Stop: 08/10/17 08:59 Last Admin: 06/14/17 09:12 Dose: 8.6 mg Zolpidem Tartrate (Ambien) 10 mg PO HS PRN PRN Reason: Insomnia Stop: 08/09/17 22:50 Last Admin: 06/12/17 21:21 Dose: 10 mg General: alert HEENT: NC/AT, PERRLA Neck: Supple Lungs: CTAB Cardiovascular: RRR, Normal S1, Normal S2 Abdomen: soft, non-tender, non-distended Neurological: alert Internal Medicine Assmt/Plan - Assessment Assessment: abdominal pain acute uti hyponatremia constipation - Plan Plan: cbc/bmp in am continue ivabx psych f/u continue current plan of care Nutritional Asmnt/Malnutr-PDOC - Dietary Evaluation Malnutrition Findings (Please click <Entered> for more info): Nutritional Asmnt/Malnutrition Start: 06/11/17 17: 35 Text: Status: Complete Freq: Document 06/11/17 17:36 LCHENG (Rec: 06/11/17 17:59 LCHENG [email or web address]) Nutritional Asmnt/Malnutrition Patient General Information Nutritional Screening High Risk Diagnosis abdominal pain, UTI Pertinent Medical Hx/Surgical Hx HTN, DM, CD, CVA/TIA, paraplegia, anemia, MRSA, dyslipidemia, PUD/GERD, ESRD Subjective Information Consult received for wounds. Pt seen lying in bed at time of visit. Pt reported appetite ok, she only took milk and pudding for lunch, she did not like the soup and cranberry juice. Pt understand the importance of limiting carb intake. But she has not been following any diet restrictions. pt denied N/V. Current Diet Order/ Nutrition Support full liquid Pertinent Medications glucagen, novolog, levemir, culturelle, levaquin, protonix , seroquel, nacl 0.9% Pertinent Labs 06/10 na 130, K 3.9, Cl 101, BUN 10, Cr 0.5, Glucose 230, A1c 6.5, ca 8.3, Alb 2.6 Nutritional Hx/Data Height 5 ft 1 in Height (Calculated Centimeters) 154.9 Current Weight (lbs) 133 lb Weight (Calculated Kilograms) 60.3 Weight (Calculated Grams) 68560.8 [place] Body Weight 105 % [place] Body Weight 126 Body Mass Index (BMI) 25.1 Weight Status Overweight GI Symptoms GI Symptoms None Difficult in: None Skin Integrity/Comment: preesure ulcer to right buttocks, ulceration to left buttocks Estimated Nutritional Goals BEE in Kcals: Using Current wt Calories/Kcals/Kg 25-30 Kcals Calculated 2194-8500 Protein: Using Current wt Protein g/k.2-1.4 Protein Calculated 72-84 Fluid: ml 1500-1800ml (1ml/kcal) Nutritional Problem 1. Problem Problem increased nutrition needs ( calorie and protein) Etiology wound healing Signs/Symptoms: pressure ulcer Malnutrition Alert Protein-Calorie Malnutrition N/A Is there a minimum of two criteria No selected? Query Text:Check all the applicable criteria. A minimum of two criteria are recommended for diagnosis of either severe or non-severe malnutrition. Intervention/Recommendation Comments 1. Receommend Boost Glucose Control TID for full liquid diet to supplement nutrition intake. 2. MD to consider zinc and vitamin c to help with wound healing 3. Monitor PO intake, wt, labs and skin integrity 4. F/U as high risk in 2-3 days, 2/3-2/4 Expected Outcomes/Goals Expected Outcomes/Goals 1. PO intake to meet at least 75% of nutritional needs. 2. Wt stability, wound to heal , labs to approach WNL.
[2017-06-15] MEDS: Morphine Sulfate 2 mg/mL 1mL Syr IVP PRN ×5 (00:41→16:05)
[2017-06-15 06:14] LABS: % BASOPHILS 0.5 % (0.0-2.0); % EOSINOPHILS 4.3 % (0.0-5.0); % LYMPHOCYTES 40.2 % (20.0-50.0); % MONOCYTES 10.7 % (2.0-10.0); % NEUTROPHILS 44.3 % (40.0-80.0); EOSINOPHILE ABSOLUTE 0.3 Th/cmm (0.1-0.4); LYMPHOCYTE ABSOLUTE 2.6 Th/cmm (1.5-3.0); MEAN CELL VOLUME 70.7 fl (81-100); MEAN CORPUSCULAR HEMOGLOBIN 22.9 pg (27.0-31.0); MEAN CORPUSCULAR HGB CONC 32.4 pg (28.0-36.0); MEAN PLATELET VOLUME 7.6 fl; MONOCYTE ABSOLUTE 0.7 Th/cmm (0.3-1.0); NEUTROPHILE ABSOLUTE 2.9 Th/cmm (1.8-8.0); PLATELET COUNT 480 Th/cmm (150-400); RED BLOOD COUNT 3.95 Mil/cmm (3.80-5.10); RED CELL DISTRIBUTION WIDTH 15.7 % (11.5-20.0); WHITE BLOOD COUNT 6.5 Th/cmm (4.8-10.8)
[2017-06-15 06:16] LABS: HEMATOCRIT 27.9 % (41.0-60)
[2017-06-15 06:28] LABS: ANION GAP 7.5 (7.0-16.0); BUN - UREA NITROGEN 7 mg/dL (7-25); CALCIUM SERUM 8.3 mg/dL (8.6-10.3); CARBON DIOXIDE 23.6 mEq/L (21.0-31.0); CHLORIDE 108 mEq/L (98-107); CREATININE - SERUM 0.6 mg/dL (0.6-1.2); GFR AFRICAN-AMERICAN > 60.0 ml/min (>90); GFR NON AFRICAN-AMERICAN > 60.0 ml/min; GLUCOSE 158 mg/dL (70-105); POTASSIUM SERUM 4.1 mEq/L (3.5-5.1); SODIUM SERUM 135 mEq/L (136-145)
[2017-06-15] MEDS: INSULIN ASPART, RECOMBINANT 100 UNITS/ML SUBQ SCH ×2 (06:52→11:08)
[2017-06-15] MEDS: Pantoprazole 40 mg EC Tab PO SCH (08:26)
[2017-06-15] MEDS: Lactobacillus Rhamnosus GG 15 Billion CFU CAP.SPRINK PO SCH (08:26)
[2017-06-15] MEDS: Enoxaparin 30 mg/0.3 mL 0.3mL Syr SUBQ SCH (08:32)
[2017-06-15] MEDS: Insulin Detemir 100 units/mL 10mL Vial SUBQ SCH (08:32)
[2017-06-15] MEDS: Multivitamin w/ Minerals Tab PO SCH (08:37)
--- NOTE | 2017-06-15 12:53 | Internal Medicine Prog Note ---
Internal Medicine Subjective - Subjective Service Date: 06/15/17 (DC SUMMARY [id number]) Patient is:: awake Per staff patient has:: tolerating meds Internal Medicine Objective - Results Result Diagrams: 06/15/17 05:40 06/15/17 05:40 Recent Labs: Laboratory Last Values WBC 6.5 Th/cmm (4.8-10.8) 06/15/17 05:40 RBC 3.95 Mil/cmm (3.80-5.10) 06/15/17 05:40 Hgb 9.0 gm/dL (12-16) L 06/15/17 05:40 Hct 27.9 % (41.0-60) L D 06/15/17 05:40 MCV 70.7 fl (81-100) L 06/15/17 05:40 MCH 22.9 pg (27.0-31.0) L 06/15/17 05:40 MCHC Differential 32.4 pg (28.0-36.0) 06/15/17 05:40 RDW 15.7 % (11.5-20.0) 06/15/17 05:40 Plt Count 480 Th/cmm (150-400) H 06/15/17 05:40 MPV 7.6 fl 06/15/17 05:40 Neutrophils % 44.3 % (40.0-80.0) 06/15/17 05:40 Lymphocytes % 40.2 % (20.0-50.0) 06/15/17 05:40 Monocytes % 10.7 % (2.0-10.0) H 06/15/17 05:40 Eosinophils % 4.3 % (0.0-5.0) 06/15/17 05:40 Basophils % 0.5 % (0.0-2.0) 06/15/17 05:40 Total Retics Counted 0.8 % (0.5-1.5) 06/12/17 06:10 Absolute Retic 31.6 Th/cmm 06/12/17 06:10 Corrected Retic Count 0.5 % (0.5-1.5) 06/12/17 06:10 PT 10.9 SECONDS (9.5-11.5) 06/12/17 06:10 INR 1.05 (0.5-1.4) 06/12/17 06:10 Sodium 135 mEq/L (136-145) L 06/15/17 05:40 Potassium 4.1 mEq/L (3.5-5.1) 06/15/17 05:40 Chloride 108 mEq/L (98-107) H 06/15/17 05:40 Carbon Dioxide 23.6 mEq/L (21.0-31.0) 06/15/17 05:40 Anion Gap 7.5 (7.0-16.0) 06/15/17 05:40 BUN 7 mg/dL (7-25) 06/15/17 05:40 Creatinine 0.6 mg/dL (0.6-1.2) 06/15/17 05:40 Est GFR ( Amer) > 60.0 ml/min (>90) 06/15/17 05:40 Est GFR (Non-Af Amer) > 60.0 ml/min 06/15/17 05:40 BUN/Creatinine Ratio 11.7 06/15/17 05:40 Glucose 158 mg/dL (70-105) H 06/15/17 05:40 POC Glucose 195 MG/DL (70 - 105) H 06/15/17 11:05 Hemoglobin A1c % 6.5 % (4.0-6.0) H 06/10/17 19:05 Calcium 8.3 mg/dL (8.6-10.3) L 06/15/17 05:40 Magnesium 2.1 mg/dL (1.9-2.7) 06/12/17 06:10 Total Bilirubin 0.3 mg/dL (0.3-1.0) 06/13/17 09:00 AST 12 U/L (13-39) L 06/13/17 09:00 ALT 10 U/L (7-52) 06/13/17 09:00 Alkaline Phosphatase 123 U/L (34-104) H 06/13/17 09:00 Creatine Kinase 108 U/L (30-223) 06/10/17 19:05 Troponin I 0.01 ng/mL (0.01-0.05) 06/10/17 19:05 B-Natriuretic Peptide 47.9 pg/mL (5.0-100.0) 06/10/17 19:05 Total Protein 7.3 gm/dL (6.0-8.3) 06/13/17 09:00 Albumin 2.9 gm/dL (3.7-5.3) L 06/13/17 09:00 Globulin 4.4 gm/dL 06/13/17 09:00 Albumin/Globulin Ratio 0.7 (1.0-1.8) L 06/13/17 09:00 Triglycerides 165 mg/dL (<150) H 06/10/17 19:05 Cholesterol 97 mg/dL (<200) 06/10/17 19:05 LDL Cholesterol Direct 61 mg/dL (75-193) L 06/10/17 19:05 HDL Cholesterol 18 mg/dL (23-92) L 06/10/17 19:05 Amylase 21 U/L (29-103) L 06/10/17 19:05 Lipase 11 U/L (11-82) 06/12/17 06:10 TSH 2.25 uIU/ml (0.34-5.60) 06/12/17 06:10 Serum , Qual NEGATIVE (NEGATIVE) 06/10/17 19:05 Urine Source CLEAN C 06/10/17 17:58 Urine Color YELLOW 06/10/17 17:58 Urine Clarity HAZY (CLEAR) 06/10/17 17:58 Urine pH 7.5 (4.6 - 8.0) 06/10/17 17:58 Ur Specific [place] 1.015 (1.005-1.030) 06/10/17 17:58 Urine Protein 30 mg/dL (NEGATIVE) H 06/10/17 17:58 Urine Glucose (UA) NEGATIVE mg/dL (NEGATIVE) 06/10/17 17:58 Urine Ketones NEGATIVE mg/dL (NEGATIVE) 06/10/17 17:58 Urine Blood SMALL (NEGATIVE) H 06/10/17 17:58 Urine Nitrate NEGATIVE (NEGATIVE) 06/10/17 17:58 Urine Bilirubin NEGATIVE (NEGATIVE) 06/10/17 17:58 Urine Urobilinogen 1.0 E.U./dL (0.2 - 1.0) 06/10/17 17:58 Ur Leukocyte Esterase MODERATE (NEGATIVE) H 06/10/17 17:58 Urine RBC 5-10 /hpf (0-5) H 06/10/17 17:58 Urine WBC 10-25 /hpf (0-5) H 06/10/17 17:58 Ur Epithelial Cells FEW /lpf (FEW) 06/10/17 17:58 Urine Bacteria 2+ /hpf (NONE SEEN) H 06/10/17 17:58 Urine Test NEGATIVE 06/10/17 17:58 Helicobacter pylori Ab NEGATIVE (NEGATIVE) 06/12/17 11:10 - Physical Exam Vitals and I&O: Vital Signs Temp 97.6 F 06/15/17 12:06 Pulse 67 06/15/17 12:06 Resp 18 06/15/17 12:06 BP 103/55 06/15/17 12:06 Pulse Ox 96 06/15/17 12:06 Intake & Output 06/14/17 06/15/17 06/15/17 18:59 06:59 18:59 Intake Total 1550 523.333 Output Total 1250 1700 Balance 300 -1176.667 Weight (lbs) 128 lb 159 lb Intake: Intake, IV Amount 1100 183.333 Levofloxacin 500mg/100mL 98.333 500 mg In 100 ml @ 100 mls/hr IV Q24HR [facility] Rx#: [id number] Sodium Chloride 0.9% 1, 1000 000 ml @ 60 mls/hr IV . [id number] [facility] Rx#:[id number] metroNIDAZOLE 500mg/NS 100 85 100mL 500 mg In 100 ml @ 100 mls/hr IV Q8HR [facility] Rx #:[id number] Oral 450 340 Output: Urine 1250 1700 Other: # Bowel Movements 0 0 Active Medications: Current Medications Acetaminophen (Tylenol) 650 mg PO Q4HR PRN PRN Reason: Pain (Mild) Stop: 08/09/17 22:29 Last Admin: 06/14/17 21:05 Dose: 650 mg Acetaminophen (Tylenol) 650 mg PO Q4H PRN PRN Reason: Fever above 101 Stop: 08/09/17 22:31 Al Hydrox/Mg Hydrox/Simethicone (Maalox) 30 ml PO Q6H PRN PRN Reason: Dyspepsia Stop: 08/09/17 22:31 Albuterol Sulfate (Albuterol 2.5mg/3ml Neb Ud) 2.5 mg HHN Q2HRT PRN PRN Reason: Shortness of Breath or Wheeze Stop: 08/09/17 22:31 Baclofen (Lioresal) 10 mg PO QID [facility] Stop: 08/10/17 08:59 Last Admin: 06/15/17 12:02 Dose: 10 mg Bisacodyl (Dulcolax 10 Mg Supp) 10 mg RC X1 ONE Stop: 06/15/17 15:01 Duloxetine HCl (Cymbalta) 30 mg PO BID [facility] PRN Reason: Protocol Stop: 08/14/17 16:59 Enoxaparin Sodium (Lovenox) 30 mg SUBQ DAILY [facility] Stop: 08/10/17 08:59 Last Admin: 06/15/17 08:32 Dose: Not Given Glucagon (Glucagen) 1 mg IM DAILY PRN PRN Reason: Anaphylaxis Stop: 08/09/17 22:59 Hydromorphone HCl (Dilaudid) 2 mg PO QID PRN PRN Reason: Pain (Moderate) Stop: 08/10/17 13:10 Levofloxacin (Levaquin Pb) 500 mg in 100 mls @ 100 mls/hr IV Q24HR [facility] Stop: 08/10/17 00:00 Last Infusion: 06/15/17 00:44 Dose: 0 mls/hr Sodium Chloride (Nacl 0.9%) 1,000 mls @ 60 mls/hr IV .[id number] [facility] Stop: 08/09/17 22:44 Last Admin: 06/14/17 21:06 Dose: 100 mls/hr Insulin Aspart (Novolog) 0 units SUBQ ACHS [facility] PRN Reason: Protocol Stop: 08/10/17 07:29 Last Admin: 06/15/17 11:08 Dose: Not Given Insulin Detemir (Levemir Insulin) 30 units SUBQ HS [facility] PRN Reason: Protocol Stop: 08/10/17 20:59 Last Admin: 06/14/17 20:53 Dose: Not Given Insulin Detemir (Levemir Insulin) 26 units SUBQ QAM [facility] PRN Reason: Protocol Stop: 08/10/17 08:59 Last Admin: 06/15/17 08:32 Dose: Not Given Ipratropium [place] (Atrovent Neb 0.5mg/2.5ml) 0.5 mg IH Q2HRT PRN PRN Reason: Shortness of Breath or Wheeze Stop: 08/09/17 22:31 Lactobacillus Rhamnosus (Culturelle 15b) 1 each PO DAILY [facility] Stop: 08/11/17 08:59 Last Admin: 06/15/17 08:26 Dose: 1 each Miscellaneous (Probiotic Screen) 1 ea MC PRN PRN PRN Reason: PROTOCOL Stop: 08/10/17 11:59 Morphine Sulfate (Morphine) 2 mg IVP Q4H PRN PRN Reason: Severe Pain Stop: 08/09/17 22:34 Last Admin: 06/15/17 12:02 Dose: 2 mg Ondansetron HCl (Zofran) 4 mg IV Q8H PRN PRN Reason: Nausea / Vomiting Stop: 08/09/17 22:31 Pantoprazole Sodium (Protonix) 40 mg PO BID [facility] Stop: 08/10/17 08:59 Last Admin: 06/15/17 08:26 Dose: 40 mg Pregabalin (Lyrica) 50 mg PO TID [facility] Stop: 08/10/17 08:59 Last Admin: 06/15/17 10:01 Dose: 50 mg Quetiapine Fumarate (Seroquel) 25 mg PO HS [facility] PRN Reason: Protocol Stop: 08/14/17 12:25 Senna (Senna) 8.6 mg PO DAILY [facility] Stop: 08/10/17 08:59 Last Admin: 06/15/17 08:26 Dose: 8.6 mg Zolpidem Tartrate (Ambien) 10 mg PO HS PRN PRN Reason: Insomnia Stop: 08/09/17 22:50 Last Admin: 06/12/17 21:21 Dose: 10 mg General: alert HEENT: NC/AT, PERRLA Neck: Supple Lungs: CTAB Cardiovascular: RRR, Normal S1, Normal S2 Abdomen: soft, non-tender, non-distended Neurological: alert Internal Medicine Assmt/Plan - Assessment Assessment: abdominal pain acute uti hyponatremia constipation - Plan Plan: cbc/bmp in am continue ivabx psych f/u continue current plan of care Nutritional Asmnt/Malnutr-PDOC - Dietary Evaluation Malnutrition Findings (Please click <Entered> for more info): Nutritional Asmnt/Malnutrition Start: 06/11/17 17: 35 Text: Status: Complete Freq: Document 06/11/17 17:36 [email or web address] (Rec: 06/11/17 17:59 LCMONICA HERMANN-FN) Nutritional Asmnt/Malnutrition Patient General Information Nutritional Screening High Risk Diagnosis abdominal pain, UTI Pertinent Medical Hx/Surgical Hx HTN, DM, CD, CVA/TIA, paraplegia, anemia, MRSA, dyslipidemia, PUD/GERD, ESRD Subjective Information Consult received for wounds. Pt seen lying in bed at time of visit. Pt reported appetite ok, she only took milk and pudding for lunch, she did not like the soup and cranberry juice. Pt understand the importance of limiting carb intake. But she has not been following any diet restrictions. pt denied N/V. Current Diet Order/ Nutrition Support full liquid Pertinent Medications glucagen, novolog, levemir, culturelle, levaquin, protonix , seroquel, nacl 0.9% Pertinent Labs 06/10 na 130, K 3.9, Cl 101, BUN 10, Cr 0.5, Glucose 230, A1c 6.5, ca 8.3, Alb 2.6 Nutritional Hx/Data Height 5 ft 1 in Height (Calculated Centimeters) 154.9 Current Weight (lbs) 133 lb Weight (Calculated Kilograms) 60.3 Weight (Calculated Grams) 97205.8 [place] Body Weight 105 % [place] Body Weight 126 Body Mass Index (BMI) 25.1 Weight Status Overweight GI Symptoms GI Symptoms None Difficult in: None Skin Integrity/Comment: preesure ulcer to right buttocks, ulceration to left buttocks Estimated Nutritional Goals BEE in Kcals: Using Current wt Calories/Kcals/Kg 25-30 Kcals Calculated 0209-5207 Protein: Using Current wt Protein g/k.2-1.4 Protein Calculated 72-84 Fluid: ml 1500-1800ml (1ml/kcal) Nutritional Problem 1. Problem Problem increased nutrition needs ( calorie and protein) Etiology wound healing Signs/Symptoms: pressure ulcer Malnutrition Alert Protein-Calorie Malnutrition N/A Is there a minimum of two criteria No selected? Query Text:Check all the applicable criteria. A minimum of two criteria are recommended for diagnosis of either severe or non-severe malnutrition. Intervention/Recommendation Comments 1. Receommend Boost Glucose Control TID for full liquid diet to supplement nutrition intake. 2. MD to consider zinc and vitamin c to help with wound healing 3. Monitor PO intake, wt, labs and skin integrity 4. F/U as high risk in 2-3 days, 2/3-2/4 Expected Outcomes/Goals Expected Outcomes/Goals 1. PO intake to meet at least 75% of nutritional needs. 2. Wt stability, wound to heal , labs to approach WNL.
--- NOTE | 2017-06-15 15:44 | Pathology Report ---
[id number] Collection Date: 06/12/2017 Surgeon: Dr. Kathy Reyes Specimen Description: Antrum biopsy Gross Description: Received in formalin is a 0.2 cm white soft tissue fragment. Totally submitted in one cassette. Microscopic Description: The histologic sections show gastric mucosa with mild chronic inflammation present consisting of lymphocytes and plasma cells. The Giemsa stain shows no evidence for Helicobacter pylori. Diagnosis: 1. Mild chronic gastritis, antrum biopsy. 2. The Giemsa stain is negative for Helicobacter pylori. [facility]# [id number]
[2017-06-15] MEDS ORDERED: Ampicillin Sodium/Sulbactam 3 GM in Sodium Chloride 0.9% 100 ML IV SCH (18:00)
--- NOTE | 2017-06-15 22:27 | Discharge Summary ---
DATE OF DISCHARGE: 06/15/2017 DICTATED FOR: Stanley Fernandez D.O. DISCHARGE DIAGNOSES: Abdominal pain, acute urinary tract infection, hyponatremia and constipation. HISTORY OF PRESENT ILLNESS: This is a 57-year-old female who is a [facility] resident, brought to [facility] due to 5-day history of abdominal pain. The patient states that the last time she had a BM was 4 days ago, she describes the pain as more cramping like, intermittent sharp pains. Denied any nausea, vomiting. For further management, the patient is admitted. PHYSICAL EXAMINATION: GENERAL: The patient is well developed, well nourished, no acute distress. VITAL SIGNS: Stable. HEENT: Head normocephalic, atraumatic. NECK: Supple. No mass. LUNGS: Clear bilaterally. HEART: Regular rhythm. ABDOMEN: Soft, nontender. HOSPITAL COURSE: During the hospital stay, the patient was admitted to the med-surg unit. The patient had a CT of the abdomen and pelvis done, impression was hepatosplenomegaly, prominent common bile duct and pancreatic duct. Gallbladder is not seen. Findings will be associated with surgical sequelae. The patient also had a chest x-ray done. Impression was no focal airspace consolidation identified. The patient was on IV fluids for hydration as well as IV antibiotics of Flagyl. The patient had some laxatives done as well. Wound care was on the case. The patient also had a GI consultation done as well as Psychiatry. On 06/12/2017, the patient had an EGD done with biopsy and postoperative diagnosis was gastritis. The patient was kept on PPIs. The patient had a urine culture done and it was positive for E. coli. Due to the need of IV antibiotics, the patient will be discharged to [facility]. CONDITION UPON DISCHARGE: Fair. DISPOSITION: [facility]. JOB# [id number]
[2017-06-16 06:09] LABS: FOLIC ACID 7.7 ng/mL (>3.0)
--- NOTE | 2017-06-16 11:12 | Progress Notes ---
DATE: 06/15/2017 SUBJECTIVE: The patient was seen, chart reviewed, discussed with staff. Still feeling anxious and depressed, having trouble sleeping at nighttime. Continues to have chronic pain issues. The patient has no suicidal thoughts. She is oriented to time, place and person. ASSESSMENT: We will increase Cymbalta to 30 mg p.o. b.i.d., increase Seroquel to 25 mg p.o. at bedtime. The patient is still having difficulty sleeping at nighttime. She has some agitation at night time. We will monitor closely. JOB# [id number]
[2017-06-17 06:13] LABS: FERRITIN 104 ng/mL (15-150); HAPTOGLOBIN 338 mg/dL (34-200); IRON LC 16 ug/dL (27-159); TIBC (LC) 211 ug/dL (250-450); UIBC 195 ug/dL (131-425)
== END 2017-06-15 16:30 | DRG 689 ==
LOC: ER 17:34 → MSI 22:15 → TELE 22:57
PROVIDERS: ADMIT Internal Medicine; ATTEND Internal Medicine
PROC: 0DB68ZX Excision of Stomach, Via Natural or Artificial Opening Endoscopic, Diagnostic (ICD-10-PCS; principal; 2017-06-12)
DX: N39.0 Urinary tract infection, site not specified (principal); E43 Unspecified severe protein-calorie malnutrition; E11.22 Type 2 diabetes mellitus with diabetic chronic kidney disease; G82.20 Paraplegia, unspecified; E87.1 Hypo-osmolality and hyponatremia; I12.0 Hypertensive chronic kidney disease with stage 5 chronic kidney disease or end stage renal disease; F33.9 Major depressive disorder, recurrent, unspecified; R16.2 Hepatomegaly with splenomegaly, not elsewhere classified; N18.6 End stage renal disease; D64.9 Anemia, unspecified; I25.10 Atherosclerotic heart disease of native coronary artery without angina pectoris; K59.00 Constipation, unspecified; E78.5 Hyperlipidemia, unspecified; K21.9 Gastro-esophageal reflux disease without esophagitis; B96.20 Unspecified Escherichia coli [E. coli] as the cause of diseases classified elsewhere; K29.70 Gastritis, unspecified, without bleeding; Z68.30 Body mass index [BMI] 30.0-30.9, adult; Z88.8 Allergy status to other drugs, medicaments and biological substances; Z83.3 Family history of diabetes mellitus; Z82.49 Family history of ischemic heart disease and other diseases of the circulatory system; Z86.73 Personal history of transient ischemic attack (TIA), and cerebral infarction without residual deficits
CPT/HCPCS: 36415-UA; 71045-TC; 80048-TC; 80053-TC; 80061-TC; 81001-TC; 81025-TC; 82150-TC; 82550-TC; 82607-90; 82728-90; 82746-90; 82948-90; 83010-90; 83036-90; 83540-90; 83550-90; 83690-TC; 83735-TC; 83880-TC; 84443-TC; 84484-TC; 84703-TC; 85025-TC; 85044-TC; 85610-TC; 87086-90; 87338-TC; 88305-90; 88312-90; 90799; 93005; 94760; 96375; J0295; J0696; J1650; J1815; J1956; J2270; J2405; J2704; J7030; J7042; Q9967; Z7506; Z7512; Z7610